=== PATIENT | female | born 1970 | race Caucasian/White ===

== ENCOUNTER 2016-09-01 08:45 | Day surgery (SDC) | payer BC ==
[~2016-09-01] VITALS: Ht 162.6 cm; Wt 67.0 kg
[2016-09-01] VITALS (11 sets, daily range): BP systolic 108–128; BP diastolic 65–76; PULSE 66–79; RESP 14–22; Ht 162.6 cm; Wt 67.0 kg
[~2016-09-01 08:45] MED LIST: IBUP-1542 PO; LACTATED RINGER'S 1,000 ML IV SCH; LORA-441 PO; P EP PO; [UNRECOGNIZED DRUG - CODE] PO
[2016-09-01] MEDS ORDERED: LEVO75TA65 PO (09:15)
[2016-09-01 09:47] LABS: ADD SCAN DIFF NO
[2016-09-01 09:57] LABS: BASOPHIL # 0.1 10^3/ul (0.0-0.1); BASOPHILS % 1.5 % (0.0-2.0); EOSINOPHILS # 0.3 10^3/ul (0.0-0.5); EOSINOPHILS % 5.1 % (0.0-7.0); HEMATOCRIT 39.9 % (37.0-47.0); HEMOGLOBIN 13.7 g/dl (12.0-16.0); LYMPHOCYTES # 2.1 10^3/ul (0.8-2.9); LYMPHOCYTES % 38.2 % (15.0-51.0); MEAN CORPUSCULAR HEMOGLOBIN 31.6 pg (29.0-33.0); MEAN CORPUSCULAR HGB CONC 34.3 g/dl (32.0-37.0); MEAN CORPUSCULAR VOLUME 91.9 fl (82.0-101.0); MEAN PLATELET VOLUME 10.2 fl (7.4-10.4); MONOCYTE # 0.5 10^3/ul (0.3-0.9); NEUTROPHIL # 2.5 10^3/ul (1.6-7.5); PLATELET COUNT 324 10^3/UL (140-415); RED BLOOD COUNT 4.34 10^6/ul (4.20-5.40); RED CELL DISTRIBUTION WIDTH 13.1 % (11.5-14.5); WHITE BLOOD COUNT 5.5 10^3/ul (4.8-10.8)
[2016-09-01] MEDS ORDERED: PROPOFOL 20 ML ONE (11:01)
[2016-09-01] MEDS ORDERED: MIDAZOLAM 1 MG/ML 2 ML INJ ONE (11:01)
[2016-09-01] MEDS ORDERED: LIDOCAINE 2% (SDV) 5 ML INJ ONE (11:01)
[2016-09-01] MEDS ORDERED: DEXAMETHASONE 4 MG/ML 1 ML INJ ONE (11:13)
[2016-09-01] MEDS ORDERED: ONDANSETRON 4 MG INJ ONE (11:13)
[2016-09-01] MEDS ORDERED: METOCLOPRAMIDE 10 MG INJ ONE (11:13)
[2016-09-01] MEDS ORDERED: EPHEDrine SULFATE 50 MG/5 ML SYG ONE (11:18)
[2016-09-01] MEDS ORDERED: KETOROLAC 30 MG INJ ONE (11:37)
[2016-09-01] MEDS ORDERED: DIPHENHYDRAMINE 50 MG INJ IV PRN (12:00)
[2016-09-01] MEDS ORDERED: FENTAnyl 50 MCG/ML VIAL IV PRN (12:00)
[2016-09-01] MEDS ORDERED: OXYCODONE/ACETAMINOPHEN (5/325) TAB PO PRN (12:00)
[2016-09-01] MEDS ORDERED: ONDANSETRON 4 MG INJ IV PRN (12:00)
[2016-09-01] MEDS ORDERED: PROCHLORPERAZINE 10 MG INJ IV PRN (12:00)
[2016-09-01] MEDS ORDERED: HYDROmorphONE (0.2 MG/ML) 10ML SYG IV PRN (12:00)
[2016-09-01] MEDS ORDERED: MEPERIDINE 25 MG INJ IV PRN (12:00)
--- NOTE | 2016-09-01 12:30 | HP ---
Date/Time of Note Date/Time of Note DATE: 09/01/16 TIME: 12:27 Assessment/Plan VTE Prophylaxis VTE Prophylaxis Intervention: ambulation Lines/Catheters IV Catheter Type (from Nrs): Peripheral IV Assessment/Plan Chief Complaint/Hosp Course abnormal uterine bleeding Problems: Assessment/Plan Dilation and Curettage HPI/ROS Admit Date/Time Admit Date/Time Hx of Present Illness abnormal uterine bleeding ROS Constitutional: improved, no complaints Eyes: no complaints ENT: no complaints Respiratory: no complaints Cardiovascular: no complaints Gastrointestinal: no complaints Genitourinary: no complaints Musculoskeletal: no complaints Skin: no complaints Neurologic: no complaints Endocrine: no complaints Lymphatic: no complaints Psychological: nl mood/affect, no complaints Immunologic: no complaints PMH/Family/Social Past Medical History Medical History: hypothyroid Past Surgical History Past Surgical Hx: other (c/s) Family History Significant Family History: diabetes, hypertension Social History Smoking Status: Never smoker Exam/Review of Systems Vital Signs Vitals Vital Signs Date Time Temp Pulse Resp B/P Pulse Ox O2 Delivery O2 Flow Rate FiO2 09/01/16 12:05 68 14 119/73 99 Room Air 09/01/16 11:51 98.4 Exam Constitutional: alert, oriented, well developed Psych: nl mood/affect, no complaints Head: atraumatic, normocephalic Eyes: EOMI, PERRL, nl conjunctiva, nl lids, nl sclera ENMT: nl external ears & nose, nl lips & teeth, nl nasal mucosa & septum Neck: non-tender, supple Respiratory: clear to auscultation, normal air movement Cardiovascular: nl pulses, regular rate and rhythm Gastrointestinal: nl liver, spleen, non-tender, soft Musculoskeletal: nl extremities to inspection Extremities: normal pulses Neurological: COMPUTER HARDWARE DESIGNER II-XII intact, nl mental status, nl speech, nl strength Skin: nl turgor, No rash or lesions Lymph: nl lymph nodes Labs Result Diagram: 09/01/16 0938 Medications Medications Current Medications Lactated Ringer's (Lr) 1,000 ml @ 125 mls/hr Q8H IV ; Start 09/01/16 at 08:00 MAMIE SANDERS MD Sep 01, 2016 12:30
--- NOTE | 2016-09-01 14:05 | OPR ---
Date/Time of Note Date/Time of Note DATE: 09/01/16 TIME: 13:45 Operative Report Procedure Date: Sep 01, 2016 Preoperative Diagnosis abnormal uterine bleeding Postoperative Diagnosis same Operation Performed Endocervical curettage, Dilation and endometrial curettage Surgeon: MAMIE SANDERS MD Anesthesia: general Anesthesiologist: ARIADNE FULTON MD Estimated Blood Loss: minimal Specimens Endocervical curetting and endometrial curetting Complications: None Pt Condition Post Procedure: stable Disposition: PACU Procedure Description Patient was taken to OR and placed on the operating table in supine position. After adequate general anesthesia was given patient was placedin dorsal lithotomy position. The area was prepped and draped . Speculum was placed inside vagina. Using tenaculum anterior lip of cervix was grasped. Using Kevorkian curette endocervical curettage was performed. Using cervical dilators , cervical os was dilated. Using sharp curette, sharp curettage was performed. All the instruments were removed. Patient tolerated the procedure well and transferred to PACU in stable condition. MAMIE SANDERS MD Sep 01, 2016 14:04
--- NOTE | 2016-09-02 10:31 | RADRPT ---
Vent Rate: 63 bpm RR Interval: 0 msec [place] Interval: 172 msec QRS Duration: 84 msec QT Interval: 422 msec QTC Interval: 431 msec P-R-T [place]: 51 - 76 - 63 degrees Normal sinus rhythm Normal ECG Electronically Signed By: Lai Eastman [id number]
== END 2016-09-01 13:50 | disposition home or self-care (01) ==
LOC: SDS 08:45
PROVIDERS: ATTEND Obstetrics & Gynecology
DX: N85.01 Benign endometrial hyperplasia (principal); D25.9 Leiomyoma of uterus, unspecified; E03.9 Hypothyroidism, unspecified
CPT/HCPCS: 58120; 85025; 86850; 86900; 86901; 88305; 93005; J1100; J1885; J2250; J2405; J2765; Z7512; Z7610

== ENCOUNTER 2016-11-13 08:24 | Inpatient (IN) | payer BC ==
[2016-11-13] VITALS (25 sets, daily range): BP systolic 90–120; BP diastolic 50–71; PULSE 56–92; RESP 10–30; Ht 162.6 cm; Wt 64.9 kg
[~2016-11-13] VITALS: Ht 162.6 cm; Wt 64.9 kg
[~2016-11-13 08:24] MED LIST changes: +D5-NS + KCL 20 MEQ 1,000 ML IV SCH; -IBUP-1542 PO; -LACTATED RINGER'S 1,000 ML IV SCH; +LEVO75TA65 PO; -LORA-441 PO; +Metronidazole 500 MG in NS 100 ML IVPB SCH; -P EP PO; -[UNRECOGNIZED DRUG - CODE] PO; +[UNRECOGNIZED DRUG - REMARK] XX SCH
[2016-11-13] MEDS ORDERED: METR500T PO (09:13)
--- NOTE | 2016-11-13 10:02 | HPN ---
Date/Time of Note Date/Time of Note DATE: 11/13/16 TIME: 10:02 Interval H&P Admission Note Pt. seen H&P reviewed: No system changes DEEPIKA CHILDS MD Nov 13, 2016 10:02
--- NOTE | 2016-11-13 10:23 | HP ---
Date/Time of Note Date/Time of Note DATE: 11/13/16 TIME: 10:21 Assessment/Plan VTE Prophylaxis VTE Prophylaxis Intervention: SCD's Lines/Catheters IV [facility]ter [facility] (from [facility]): Saline Lock HPI/ROS Admit Date/Time Admit Date/Time Nov 13, 2016 at 08:24 Hx of Present Illness Alf Childs M.D. [facility] History and Physical Examination Miroslava Hurtado Nov 01, 2016 Age: 46 : 1970 Physicians: Medical Planner: Consumer Safety Inspector: Oncologist: Other: History of the Present Illness: This is a 46- year old with complex endometrial hyperplasia with a bit a atypia. Past Medical History: Surgical: CS x 1 Medical: None Medications: Flu yes, 2016, Pneumococcal no, declined Colonoscopy: never Allergies: 02/11/15 Cipro 02/11/15 Penicillins Family History: Noncontributory Social History: Noncontributory Review of Systems: Negative except for above noted Physical Examination Vitals (10/12/2016): Weight 148, Height 63, BP 120/80, BMI 26.2. General: Alert. HEENT: Pupils are equal, round, reactive to light and accommodation. Neck: Supple with no masses of lymphadenopathy. Breast: Deferred due to recent examination and responsibility of primary care physician. Chest: Clear to auscultation and percussion with no rales, ronchi, or wheeze. Heart: Normal rhythm with no murmur. Abdomen: Non tender. No masses, ascites, or organomegaly. Pelvis: Uterus enlarged and irregular Rectal: Confirmatory with pelvic exam. Neurological: Grossly intact Assessment: Probably symptomatic fibroids and hyperplasia; r/o endometrial cancer. Plan: TLH with sentinel LND, possible USO or BSO. All risks and benefits of this procedure have been discussed in detail with the patient, as well as alternative treatment strategies and their implications. The patient is aware that there is some possibility of a blood transfusion and its associated risks and benefits. She wishes to proceed and gives her informed consent. Alf Childs M.D. PMH/Family/Social Past Surgical History Past Surgical Hx: other Social History Smoking Status: Never smoker Exam/Review of Systems Vital Signs Vitals Vital Signs Date Time Temp Pulse Resp B/P Pulse Ox O2 Delivery O2 Flow Rate FiO2 11/13/16 09:15 98.6 60 16 113/71 99 Room Air Medications Medications Current Medications Potassium Chloride/Dextrose/ Sod Cl 1,000 ml @ 100 mls/hr Q10H IV ; Start at 06:00; Stop 11/13/16 at 23:00 Metronidazole (Flagyl 500 Mg (Pmx)) 100 ml @ 100 mls/hr OC IVPB ; Start at 06:00; Stop 11/13/16 at 20:00 Miscellaneous Information (*Order Clarification Bulletin) MEDICATION REQUIRES CLARIFICATION: Q8H XX ; Start 11/13/16 at 06:00; Stop 11/13/16 at 16:00 ALF CHILDS MD Nov 13, 2016 10:23
[2016-11-13] MEDS ORDERED: morphine SULFATE/PF (10 MG/10 ML) INJ ONE (10:37)
[2016-11-13] MEDS ORDERED: PHENYLephrine (100 MCG/ML) 5ML SYG ONE (10:56)
[2016-11-13] MEDS ORDERED: ROCURONIUM 50 MG INJ ONE (11:19)
[2016-11-13] MEDS ORDERED: PROPOFOL 20 ML ONE (11:19)
[2016-11-13] MEDS ORDERED: CLINDAMYCIN 900 MG/D5W (PMX) 50 ML IVPB ONE (11:19)
[2016-11-13] MEDS ORDERED: metroNIDAZOLE 500 MG/NS (PMX) 100 ML IVPB ONE (11:19)
[2016-11-13] MEDS ORDERED: SUCCINYLCHOLINE CHLORIDE 100 MG/5 ML SYG IV ONE (11:19)
[2016-11-13] MEDS ORDERED: LIDOCAINE 1% (MDV) 20 ML INJ ONE (11:20)
[2016-11-13] MEDS ORDERED: HYDROmorphONE (0.2 MG/ML) 10ML SYG IV PRN ×2 (11:30)
[2016-11-13] MEDS ORDERED: FENTAnyl 50 MCG/ML VIAL IV PRN ×2 (11:30)
[2016-11-13] MEDS ORDERED: ONDANSETRON 4 MG INJ IV PRN ×2 (11:30→14:30)
[2016-11-13] MEDS ORDERED: METOCLOPRAMIDE 10 MG INJ IV PRN (11:30)
[2016-11-13] MEDS ORDERED: MEPERIDINE 25 MG INJ IV PRN (11:30)
[2016-11-13] MEDS ORDERED: DIPHENHYDRAMINE 50 MG INJ IV PRN (11:30)
[2016-11-13] MEDS ORDERED: THROMBIN 5000 UNIT VIAL ONE (11:54)
[2016-11-13] MEDS ORDERED: VASOPRESSIN 20 UNITS INJ ONE (11:54)
[2016-11-13] MEDS ORDERED: METHYLENE BLUE 1% 10 ML INJ ONE (11:55)
[2016-11-13] MEDS ORDERED: SUGAMMADEX SODIUM 200 MG/2 ML VIAL IV ONE (13:58)
[2016-11-13] MEDS ORDERED: HEMOSTATIC MATRIX SYG ZFS ONE (14:00)
[2016-11-13] MEDS ORDERED: metroNIDAZOLE 500 MG/NS (PMX) 100 ML IVPB SCH (14:30)
[2016-11-13] MEDS ORDERED: morphine 10 MG INJ IM PRN (14:30)
[2016-11-13] MEDS ORDERED: CEFAZOLIN 1 GM in SOD CHLORIDE 0.9% 100 ML IVPB SCH (14:30)
--- NOTE | 2016-11-13 14:32 | OPPN ---
Date/Time of Note Date/Time of Note DATE: 11/13/16 TIME: 14:29 Operative Report Preoperative Diagnosis Endometrial hyperplasia with atypia Postoperative Diagnosis same with fibroids and ureteral stricture and path pending Operation/Procedure Performed TLH/BSO,[place] P/A LND, UD Anesthesia Type: other Estimated blood loss: 50 - 100 ml's Transfusion Required: no Specimens multiple Grafts/Implants: none Complications: no DEEPIKA CHILDS MD Nov 13, 2016 14:32
[2016-11-13 14:56] LABS: BASOPHIL # 0.1 10^3/ul (0.0-0.1); BASOPHILS % 0.7 % (0.0-2.0); EOSINOPHILS # 0.1 10^3/ul (0.0-0.5); EOSINOPHILS % 0.7 % (0.0-7.0); HEMATOCRIT 40.2 % (37.0-47.0); HEMOGLOBIN 13.5 g/dl (12.0-16.0); LYMPHOCYTES % 28.8 % (15.0-51.0); MEAN CORPUSCULAR HEMOGLOBIN 31.2 pg (29.0-33.0); MEAN CORPUSCULAR HGB CONC 33.6 g/dl (32.0-37.0); MEAN CORPUSCULAR VOLUME 92.8 fl (82.0-101.0); MEAN PLATELET VOLUME 9.3 fl (7.4-10.4); MONOCYTE # 0.6 10^3/ul (0.3-0.9); MONOCYTES % 5.9 % (0.0-11.0); NEUTROPHILS % 63.6 % (39.0-77.0); PLATELET COUNT 297 10^3/UL (140-415); RED BLOOD COUNT 4.33 10^6/ul (4.20-5.40); RED CELL DISTRIBUTION WIDTH 12.2 % (11.5-14.5); WHITE BLOOD COUNT 10.6 10^3/ul (4.8-10.8)
[2016-11-13] MEDS ORDERED: CLINDAMYCIN 900 MG/D5W (PMX) 50 ML IVPB SCH (15:00)
[2016-11-13 15:26] LABS: CREATININE 0.53 mg/dl (0.44-1.00); POTASSIUM 3.5 mmol/L (3.5-5.1)
[2016-11-13] MEDS: CLINDAMYCIN 900 MG/D5W (PMX) 50 ML IVPB SCH (22:24)
[2016-11-13] MEDS: metroNIDAZOLE 500 MG/NS (PMX) 100 ML IVPB SCH (22:25)
[2016-11-13] MEDS: POTASSIUM CHLORIDE 20 MEQ in LACTATED RINGER'S 1,000 ML IV SCH (22:25)
--- NOTE | 2016-11-13 23:59 | HP ---
DATE OF ADMISSION: 11/13/2016 CHIEF COMPLAINT AND HISTORY OF PRESENT ILLNESS: The patient is a 46-year-old female with a history of abnormal uterine bleed and was seen by Dr. Fuentes as an outpatient. The patient underwent dilation and curettage on 09/01/2016. The patient's endometrial biopsy came back positive for proliferative endometrium with focal area of complex hyperplasia without atypia. It was negative for malignancy. Endocervical curettage curettings were also negative for dysplasia or malignancy. Patient was seen by Dr. Duran as an outpatient and was brought into the hospital today and was also noted to have uterine fibroid and uterine stricture. The patient underwent total laparoscopic hysterectomy, bilateral salpingo-oophorectomy lymph node dissection and ureter dissection. The patient is being admitted for further evaluation and management. The patient denies any chest pain, no shortness of breath. No reported recent fever or chills. No reported headache, dizziness or syncope. No history of diabetes, hypertension or any cardiac disease. Other than postoperative pain, the rest of the review of systems are unremarkable. PAST SURGICAL HISTORY: Patient is status post . FAMILY HISTORY: Father had diabetes. Mother with hypertension. ALLERGIES: CIPRO. PENICILLIN. SOCIAL HISTORY: No smoking. No alcohol. PHYSICAL EXAMINATION: GENERAL: Patient conscious, awake, alert. VITAL SIGNS: Temperature 97.7, pulse 66, respirations 16, blood pressure 109/59, O2 sat 97 on room air. HEENT: Conjunctivae and lids are normal. Oropharynx clear. NECK: Supple. No thyromegaly. CHEST: Clear to auscultation. CVS: S1, S2 normal. No murmur, gallop, or rub. ABDOMEN: The patient is status post surgery as above. EXTREMITIES: No leg edema. NEURO: Patient is awake, alert, with no gross focal deficit. IMPRESSION: Endometrial hyperplasia, status post laparoscopic total hysterectomy and bilateral salpingo-oophorectomy, lymph node dissection and ureteral dissection. PLAN: Patient admitted on medical floor. Patient will be started on clear liquid diet. Patient will be given IV fluids. Patient will be given clindamycin and Flagyl due to penicillin allergy. The patient will be also started on Percocet and IV morphine for pain control and IV Zofran for nausea and vomiting. Patient will have SCDs for DVT prophylaxis. We will continue to follow her from medical standpoint. Labs done this morning revealed WBC 10.6, hemoglobin 13.5, platelet 297. BMP was unremarkable. Dictated By: Que Sweeney MD /shiloh/praveena /Document#: [id number]
[2016-11-14] MEDS ORDERED: DIPHENHYDRAMINE 50 MG INJ IV PRN
[2016-11-14] MEDS: POTASSIUM CHLORIDE 20 MEQ in LACTATED RINGER'S 1,000 ML IV SCH ×2 (00:25→13:41)
[2016-11-14 02:46] VITALS: BP 101/64; RESP 18
[2016-11-14] MEDS: CLINDAMYCIN 900 MG/D5W (PMX) 50 ML IVPB SCH ×2 (03:47→13:41)
[2016-11-14] MEDS: metroNIDAZOLE 500 MG/NS (PMX) 100 ML IVPB SCH ×3 (03:47→20:52)
[2016-11-14 06:47] LABS: INR 1.07; PROTIME 13.9 Sec (12.2-14.2); PT RATIO 1.1
[2016-11-14 07:00] LABS: ALBUMIN 2.7 g/dl (3.3-4.9); ALBUMIN/GLOBULIN RATIO 1.17; BILIRUBIN,INDIRECT 0.7 mg/dl (0-1.1); BILIRUBIN,TOTAL 0.7 mg/dl (0.2-1.3); CALCIUM 7.8 mg/dl (8.4-10.2); CREATININE 0.55 mg/dl (0.44-1.00); POTASSIUM 3.8 mmol/L (3.5-5.1)
[2016-11-14 07:31] VITALS: BP 89/52; RESP 18
[2016-11-14] MEDS: HYDROCODONE/APAP (5/325) TAB PO PRN ×2 (12:53→18:53)
--- NOTE | 2016-11-14 16:48 | PN ---
Date/Time of Note Date/Time of Note DATE: 11/14/16 TIME: 16:46 Assessment/Plan VTE Prophylaxis VTE Prophylaxis Intervention: SCD's Lines/Catheters IV Catheter Type (from Nrs): Peripheral IV Urinary Cath still in place: Yes Reason Cath still needed: urinary retention Assessment/Plan Chief Complaint/Hosp Course endometrial hyprplasia Problems: Assessment/Plan A- doing well\ P- mobilize and probably d/c a.m. Subjective 24 Hr Interval Summary Free Text/Dictation + flatus but not OOB. Exam/Review of Systems Vital Signs Vitals Vital Signs Date Time Temp Pulse Resp B/P Pulse Ox O2 Delivery O2 Flow Rate FiO2 11/14/16 07:31 98.6 74 18 89/52 96 11/13/16 17:50 Room Air Intake and Output 11/13/16 11/13/16 11/14/16 14:59 22:59 06:59 Intake Total 1200 ml 120 ml 1520 ml Output Total 380 ml 600 ml 1050 ml Balance 820 ml -480 ml 470 ml Exam Resp- clear CVS- NSR Abd- NT with clean wound, Ext - NT' no edema Results Result Diagram: 11/13/16 1442 11/14/16 0529 Results 24 hrs Laboratory Tests Test 11/14/16 05:29 11/14/16 05:58 Sodium Level 135 Potassium Level 3.8 Chloride Level 104 Carbon Dioxide Level 27 Anion Gap 8 Blood Urea Nitrogen 9 Creatinine 0.55 Glucose Level 74 Calcium Level 7.8 L Total Bilirubin 0.7 Direct Bilirubin 0.00 Indirect Bilirubin 0.7 Aspartate Amino Transf (AST/SGOT) 22 Alanine Aminotransferase (ALT/SGPT) 30 Alkaline Phosphatase 39 L Total Protein 5.0 L Albumin 2.7 L Globulin 2.30 Albumin/Globulin Ratio 1.17 Prothrombin Time 13.9 Prothrombin Time Ratio 1.1 INR International Normalized Ratio 1.07 Medications Medications Current Medications Potassium Chloride/Lactated Ringer's (KCl/Lr) 1,010 ml @ 60 mls/hr [id number] IV Last administered on 11/14/16t 13:41; Admin Dose 100 MLS/HR; Start 11/13/16 at 14: 19 Ondansetron HCl (Zofran Inj) 4 mg Q6H PRN IV NAUSEA AND/OR VOMITING; Start 11/13 at 14:30 Acetaminophen/ Hydrocodone Bitart ([place] (5/325)) 1 tab Q6H PRN PO pain Last administered on 11/14/16 12:53; Admin Dose 1 TAB; Start 11/13/16 at 14:30 Morphine Sulfate 2 mg 2 mg Q4H PRN IM pain; Start 11/13/16 at 14:30 Metronidazole (Flagyl 500 Mg (Pmx)) 100 ml @ 100 mls/hr Q8H IVPB Last administered on 11/14/16 12:47; Admin Dose 100 MLS/HR; Start 11/13/16 at 20:00 Diphenhydramine HCl (Benadryl) 25 mg Q6H PRN IV itching Last administered on 23:43; Admin Dose 25 MG; Start 11/14/16 at 00:00 DEEPIKA CHILDS MD Nov 14, 2016 16:48
--- NOTE | 2016-11-14 18:20 | PN ---
Date/Time of Note Date/Time of Note DATE: 11/14/16 TIME: 18:15 Assessment/Plan VTE Prophylaxis VTE Prophylaxis Intervention: SCD's Lines/Catheters IV Catheter Type (from Nrs): Peripheral IV Urinary Cath still in place: Yes Assessment/Plan Assessment/Plan - Endometrial hyperplasia - status post laparoscopic total hysterectomy and bilateral salpingo- oophorectomy, lymph node dissection and ureteral dissection. - per surgery - diet per surgery - IV fluids., clindamycin and Flagyl due to penicillin allergy. - Percocet and IV morphine for pain control and IV Zofran for nausea and vomiting. - SCDs for DVT prophylaxis. Andrés Sweeney Subjective 24 Hr Interval Summary Constitutional: requiring IVF Gastrointestinal: other (surgical Abdomen), pain Musculoskeletal: no complaints Skin: other (abdominal - DDI) Exam/Review of Systems Vital Signs Vitals Vital Signs Date Time Temp Pulse Resp B/P Pulse Ox O2 Delivery O2 Flow Rate FiO2 11/14/16 07:31 98.6 74 18 89/52 96 11/13/16 17:50 Room Air Intake and Output 11/13/16 11/13/16 11/14/16 15:00 23:00 07:00 Intake Total 1200 ml 170 ml 1470 ml Output Total 380 ml 600 ml 1050 ml Balance 820 ml -430 ml 420 ml Exam Respiratory: diminished breath sounds Cardiovascular: nl pulses, regular rate and rhythm Gastrointestinal: non-tender, soft Musculoskeletal: nl extremities to inspection Extremities: normal pulses Neurological: other Results Result Diagram: 11/13/16 1442 11/14/16 0529 Results 24 hrs Laboratory Tests Test 11/14/16 05:29 11/14/16 05:58 Sodium Level 135 Potassium Level 3.8 Chloride Level 104 Carbon Dioxide Level 27 Anion Gap 8 Blood Urea Nitrogen 9 Creatinine 0.55 Glucose Level 74 Calcium Level 7.8 L Total Bilirubin 0.7 Direct Bilirubin 0.00 Indirect Bilirubin 0.7 Aspartate Amino Transf (AST/SGOT) 22 Alanine Aminotransferase (ALT/SGPT) 30 Alkaline Phosphatase 39 L Total Protein 5.0 L Albumin 2.7 L Globulin 2.30 Albumin/Globulin Ratio 1.17 Prothrombin Time 13.9 Prothrombin Time Ratio 1.1 INR International Normalized Ratio 1.07 Medications Medications Current Medications Potassium Chloride/Lactated Ringer's (KCl/Lr) 1,010 ml @ 60 mls/hr [id number] IV Last administered on 11/14/16 13:41; Admin Dose 100 MLS/HR; Start 11/13/16 at 14: 19 Ondansetron HCl (Zofran Inj) 4 mg Q6H PRN IV NAUSEA AND/OR VOMITING; Start 11/13 at 14:30 Acetaminophen/ Hydrocodone Bitart ([place] (5/325)) 1 tab Q6H PRN PO pain Last administered on 11/14/16 12:53; Admin Dose 1 TAB; Start 11/13/16 at 14:30 Morphine Sulfate 2 mg 2 mg Q4H PRN IM pain; Start 11/13/16 at 14:30 Metronidazole (Flagyl 500 Mg (Pmx)) 100 ml @ 100 mls/hr Q8H IVPB Last administered on 11/14/16 12:47; Admin Dose 100 MLS/HR; Start 11/13/16 at 20:00 Diphenhydramine HCl (Benadryl) 25 mg Q6H PRN IV itching Last administered on 23:43; Admin Dose 25 MG; Start 11/14/16 at 00:00 YUDITH WHATLEY Nov 14, 2016 18:20
--- NOTE | 2016-11-14 19:01 | OPR ---
Date/Time of Note Date/Time of Note DATE: 11/14/16 TIME: 19:01 Operative Report Free Text/Dictation OPERATIVE REPORT [facility] Name: Miroslava Hurtado Medical Date: 11/13/16 Preoperative Diagnosis: Endometrial severe hyperplasia with atypia Postoperative Diagnosis: Endometrial cancer with final pathology pending Procedures: 1- Total laparoscopic hysterectomy with left salpingoophorectomy/right salpingectomy 2- Bilateral ureteral dissection with repositioning 3- Laparoscopic sentinal pelvic and aortic lymph node dissection Surgeon: Dr. Duran Material Yard Clerk: Dr. Roberta Sprague Anaesthesia: General with regional Indications for Procedure: This 46- year old patient had endometrial hyperplasia , complex with atypia preoperatively and after discussions of options with risks and benefits it was determined that a laparoscopic hysterectomy with unilateral salpingoophorectomy and sentinel pelvic/aortic lymph node dissection would be completed for the purposes of treatment and possibly planning additional adjuvant therapy if needed. The sentinel pelvic and LND was performed in lieu of the frozen section not being more that 80% reliable in determining presence of cancer; therefore selective staging is performed to determine postoperative management and avoid re-operation unless there is a significant contraindication. Intraoperative Findings and Summary of Procedure: After placing the Trocars and exploration we noted a lightly enlarged uterus with significant adhesions of the adnexia to the sidewalls The TLH/LSO/LS was then Name: Miroslava Hurtado Medical performed without incident but required a ureteral dissection due to anatomic issues of the adnexia adherent to the sidewalls and a right broad ligament myoma , after which the laparoscopic sentinel LND was performed with a finding of grossly negative nodes pathology pending. Findings and Procedure: After being prepped and draped in the usual manner an EEA sizer and balloon was placed against the cervix. A 5-millimeter trocar was then placed cephlad to the umbilicus without incident. Subsequently, we insufflated and placed two 5- millimeter trocars laterally and a 12 millimeter trocar suprapubically, as well as an additional 5-mm trocar further cephlad to the umbilicus. At this time multiple pelvic adhesions were lysed with sharp dissection and the Omni if not adjacent to serosa. Subsequently we explored and noted a moderately irregularly enlarged uterus due to fibroids with adnexia adherent to the sidewalls due to apparent inflammation and old scar tissue with a cystic lesion on the left. Initially the right round ligament was cauterized and transected with the Thunderbeat and the retroperitoneal space further opened parallel to the IP ligament and laterally with the same devise. The right ureter was identified and due to the aforementioned distortion from adherent adnexia was dissected laterally with the Omni and the endo-dissector throughout the length of the ureter and lateralized. After lateralizing the ureter the uterine artery was identified and clipped lateral to the ureter. Hence, a space was developed the broad ligament and the right triple-pedicle was cauterized and transected with a Thunderbeat after which the fallopian tube was removed by desiccation and cutting of the fallopian tube mesentery with a Thunderbeat and the uterus was retracted medially and the bladder flap was partly developed with the Thunderbeat and the Omni. We then used a ratcheted endo-grasper placed through the 12-mm suprapubic trocar to manipulate the uterus and with the EEA sizer the uterus was retracted and left round ligament was cauterized and transected with the Thunderbeat and the retroperitoneal space further opened parallel to the IP ligament an Name: Miroslava Hurtado [facility] laterally with the same devise. The left ureter was identified and due to the aforementioned distortion was dissected laterally with the Omni and the endo- dissector as done contralaterally. After lateralizing the ureter the uterine artery was identified and clipped lateral to the ureter. Subsequently, a space was developed in the broad ligament and the left IP ligament was cauterized and transected with a Thunderbeat after which the uterus was retracted medially, allowing development or the bladder flap uneventfully with the Omni and blunt dissection. Subsequently, the right uterine artery was transected with a Thunderbeat perpendicular to the distal lower uterine segment and the Cardinal ligament and utero-sacral ligament were both transected with a Thunderbeat parallel to the lower uterine segment and cervix. An identical series of steps were taken on the left side. The anterior and posterior colpotomies were accomplished with a Thunderbeat anteriorly and posteriorly, and continued around the sides with the Omni and Thunderbeat as the specimen was removed through the vagina uneventfully. The vagina was closed with interrupted 0- vicryl and continuous 2-0 v-lock suture. At this time the frozen section returned no definite endometrial cancer and the sentinel pelvic and aortic LND were completed after confirming hemostasis. Initially a fan retractor was used for exposure and secured to the Andi arm and all appropriate node tissue adjacent to the right pelvic vessels were removed with sharp and blunt dissection, using the Gyrus bipolar cutting forceps or Gyrus bipolar Omni for hemostasis and lymphostasis. The snehal tissue was grasped and subsequently placed under tractions with the Omni and the Gyrus bipolar cutting forceps then being used for the hemostasis and lymphostasis in the process of removal and included hypogastric and obturator nodes with the obturator nerve visualized. The dissection was continued to include any snehal tissue adjacent to the common iliac vessels. The fan retractors were adjusted in that a suprapubically placed fan retracted the broad ligament and ureter with ileum while the right lateral trocar was used for a fan to retract the cecum and ascending colon allowing snehal tissue adjacent to the vena cava, as well as aorto-caval nodes to be removed using identical technique. Assistant Vice President vessels were addressed with the Gyrus bipolar cutting forceps or Gyrus bipolar Omni. At this time we placed the fan Name: [facility] retractors for contralateral exposure. Subsequently, node tissue adjacent to the left pelvic vessels were removed with sharp and blunt dissection, the Gyrus bipolar cutting forceps or Gyrus bipolar Omni for hemostasis and lymphostasis, with a technique identical to the right side with equivalent extent of completion. The dissection was continued to include snehal tissue adjacent to the common iliac vessels. Subsequently, the fan retractors were adjusted and snehal tissue adjacent to the aorta were dissected using similar technique. After irrigating and assuring hemostasis the 12 millimeter trocar was removed and the fascia was closed with 0-vicryl using an endo-close devise. The gas was removed and the skin of all sites then closed with subcuticular 5-0 Monocryl suture. The EBL was 100cc and the patient tolerated the procedure well and left the OR in good condition. Deepika Duran M.D. Anesthesia Type: other Estimated Blood Loss: 50 - 100 ml's Transfusion Required: no Complications: no DEEPIKA DURAN MD Nov 14, 2016 19:01
[2016-11-14 20:06] VITALS: BP 131/72; RESP 18
[2016-11-15] MEDS: POTASSIUM CHLORIDE 20 MEQ in LACTATED RINGER'S 1,000 ML IV SCH ×2 (00:33→05:52)
[2016-11-15] MEDS: HYDROCODONE/APAP (5/325) TAB PO PRN ×4 (01:08→17:44)
[2016-11-15 02:06] VITALS: BP 112/67; RESP 18
[2016-11-15] MEDS: metroNIDAZOLE 500 MG/NS (PMX) 100 ML IVPB SCH ×2 (03:25→12:51)
[2016-11-15 05:54] LABS: BASOPHIL # 0.1 10^3/ul (0.0-0.1); BASOPHILS % 0.9 % (0.0-2.0); EOSINOPHILS # 0.1 10^3/ul (0.0-0.5); EOSINOPHILS % 1.7 % (0.0-7.0); HEMATOCRIT 35.4 % (37.0-47.0); LYMPHOCYTES # 1.5 10^3/ul (0.8-2.9); LYMPHOCYTES % 25.9 % (15.0-51.0); MEAN CORPUSCULAR HEMOGLOBIN 31.1 pg (29.0-33.0); MEAN CORPUSCULAR HGB CONC 33.9 g/dl (32.0-37.0); MEAN CORPUSCULAR VOLUME 91.7 fl (82.0-101.0); MEAN PLATELET VOLUME 9.6 fl (7.4-10.4); MONOCYTE # 0.4 10^3/ul (0.3-0.9); MONOCYTES % 7.5 % (0.0-11.0); NEUTROPHILS % 63.7 % (39.0-77.0); PLATELET COUNT 274 10^3/UL (140-415); RED BLOOD COUNT 3.86 10^6/ul (4.20-5.40); RED CELL DISTRIBUTION WIDTH 12.4 % (11.5-14.5); WHITE BLOOD COUNT 5.9 10^3/ul (4.8-10.8)
[2016-11-15 06:32] LABS: CREATININE 0.54 mg/dl (0.44-1.00); POTASSIUM 3.8 mmol/L (3.5-5.1)
[2016-11-15 07:55] VITALS: BP 126/78; RESP 18
[2016-11-15] MEDS ORDERED: LEVOTHYROXINE 75 MCG TAB PO SCH (11:30)
[2016-11-15 14:00] VITALS: BP 118/74; RESP 17
--- NOTE | 2016-11-15 17:04 | PN ---
Date/Time of Note Date/Time of Note DATE: 11/15/16 TIME: 17:02 Assessment/Plan VTE Prophylaxis VTE Prophylaxis Intervention: SCD's Lines/Catheters IV [facility] Type [facility] Peripheral IV Urinary Cath still in place: No Assessment/Plan Chief Complaint/Hosp Course endometrial hyprplasia Problems: Assessment/Plan A- doing well P- discharge Subjective 24 Hr Interval Summary Free Text/Dictation + flatus, OOB and alvaro diet Exam/Review of Systems Vital Signs Vitals Vital Signs Date Time Temp Pulse Resp B/P Pulse Ox O2 Delivery O2 Flow Rate FiO2 11/15/16 14:00 98.2 65 17 118/74 96 11/13/16 17:50 Room Air Intake and Output 11/14/16 11/14/16 11/15/16 15:00 23:00 07:00 Intake Total 660 ml 1120 ml 930 ml Output Total 1700 ml Balance 660 ml -580 ml 930 ml Exam Resp- clear CVS- NSR Abd- NT with clean wound, Ext - NT' no edema Results Result Diagram: 11/15/16 0510 11/15/16 0510 Results 24 hrs Laboratory Tests Test 11/15/16 05:10 White Blood Count 5.9 # Red Blood Count 3.86 L Hemoglobin 12.0 Hematocrit 35.4 L Mean Corpuscular Volume 91.7 Mean Corpuscular Hemoglobin 31.1 Mean Corpuscular Hemoglobin Concent 33.9 Red Cell Distribution Width 12.4 Platelet Count 274 Mean Platelet Volume 9.6 Neutrophils % 63.7 Lymphocytes % 25.9 Monocytes % 7.5 Eosinophils % 1.7 Basophils % 0.9 Nucleated Red Blood Cells % 0.0 Neutrophils # (Manual) 3.7 Lymphocytes # 1.5 Monocytes # 0.4 Eosinophils # 0.1 Basophils # 0.1 Nucleated Red Blood Cells # 0.0 Sodium Level 135 Potassium Level 3.8 Chloride Level 104 Carbon Dioxide Level 29 Anion Gap 6 L Blood Urea Nitrogen 8 Creatinine 0.54 Glucose Level 92 Calcium Level 8.0 L Medications Medications Current Medications Potassium Chloride/Lactated Ringer's (KCl/Lr) 1,010 ml @ 60 mls/hr [id number] IV Last administered on 11/15/16t 05:52; Admin Dose 60 MLS/HR; Start 11/13/16 at 14: 19 Ondansetron HCl (Zofran Inj) 4 mg Q6H PRN IV NAUSEA AND/OR VOMITING; Start 11/13 at 14:30 Acetaminophen/ Hydrocodone Bitart ([place] (5/325)) 1 tab Q6H PRN PO pain Last administered on 11/15/16 12:50; Admin Dose 1 TAB; Start 11/13/16 at 14:30 Morphine Sulfate 2 mg 2 mg Q4H PRN IM pain; Start 11/13/16 at 14:30 Metronidazole (Flagyl 500 Mg (Pmx)) 100 ml @ 100 mls/hr Q8H IVPB Last administered on 11/15/16 12:51; Admin Dose 100 MLS/HR; Start 11/13/16 at 20:00 Diphenhydramine HCl (Benadryl) 25 mg Q6H PRN IV itching Last administered on 23:43; Admin Dose 25 MG; Start 11/14/16 at 00:00 DEEPIKA CHILDS MD Nov 15, 2016 17:04
--- NOTE | 2016-11-15 17:13 | DS ---
Date/Time of Note Date/Time of Note DATE: 11/15/16 TIME: 17:13 Discharge Summary Admission/Discharge Info Admit Date/Time Nov 13, 2016 at 08:24 Discharge Date/Time Patient Condition: Stable Hx of Present Illness Alf Duran M.D. 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 Past Medical History: Surgical: CS x 1 Medical: None Medications: Flu yes, 2016, Pneumococcal no, declined Colonoscopy: never Allergies: 02/11/15 Cipro 02/11/15 Penicillins Family History: Noncontributory Social History: Noncontributory Review of Systems: Negative except for above noted Physical Examination Vitals (10/12/2016): Weight 148, Height 63, BP 120/80, BMI 26.2. General: Alert. HEENT: Pupils are equal, round, reactive to light and accommodation. Neck: Supple with no masses of lymphadenopathy. Breast: Deferred due to recent examination and responsibility of primary care physician. Chest: Clear to auscultation and percussion with no rales, ronchi, or wheeze. Heart: Normal rhythm with no murmur. Abdomen: Non tender. No masses, ascites, or organomegaly. Pelvis: Uterus enlarged and irregular Rectal: Confirmatory with pelvic exam. Neurological: Grossly intact Assessment: Probably symptomatic fibroids and hyperplasia; r/o endometrial cancer. Plan: TLH with sentinel LND, possible USO or BSO. All risks and benefits of this procedure have been discussed in detail with the patient, as well as alternative treatment strategies and their implications. The patient is aware that there is some possibility of a blood transfusion and its associated risks and benefits. She wishes to proceed and gives her informed consent. Alf Duran M.D. Hospital Course endometrial hyprplasia Home Meds Reported Medications Metronidazole* (Flagyl*) 500 Mg Tablet, 500 MG PO BID, TAB 11/13/16 Levothyroxine Sodium* (Levoxyl*) 75 Mcg Tablet, 75 MCG PO BEFORE BREAKFAST, #30 TAB 09/01/16 Primary Care Provider Zaina Woodruff Time spent on discharge: < 30 minutes Pending Labs Laboratory Tests Test 11/15/16 05:10 White Blood Count 5.910^3/ul (4.8-10.8) Red Blood Count 3.8610^6/ul (4.20-5.40) Hemoglobin 12.0g/dl (12.0-16.0) Hematocrit 35.4% (37.0-47.0) Mean Corpuscular Volume 91.7fl (82.0-101.0) Mean Corpuscular Hemoglobin 31.1pg (29.0-33.0) Mean Corpuscular Hemoglobin Concent 33.9g/dl (32.0-37.0) Red Cell Distribution Width 12.4% (11.5-14.5) Platelet Count 18155^3/UL (140-415) Mean Platelet Volume 9.6fl (7.4-10.4) Neutrophils % 63.7% (39.0-77.0) Lymphocytes % 25.9% (15.0-51.0) Monocytes % 7.5% (0.0-11.0) Eosinophils % 1.7% (0.0-7.0) Basophils % 0.9% (0.0-2.0) Nucleated Red Blood Cells % 0.0/100WBC (0.0-0.0) Neutrophils # (Manual) 3.710^3/ul (1.7-7.5) Lymphocytes # 1.510^3/ul (0.8-2.9) Monocytes # 0.410^3/ul (0.3-0.9) Eosinophils # 0.110^3/ul (0.0-0.5) Basophils # 0.110^3/ul (0.0-0.1) Nucleated Red Blood Cells # 0.010^3/ul (0.0-0.0) Sodium Level 135mmol/L (135-144) Potassium Level 3.8mmol/L (3.5-5.1) Chloride Level 104mmol/L (97-110) Carbon Dioxide Level 29mmol/L (21-31) Anion Gap 6 (8-16) Blood Urea Nitrogen 8mg/dl (7-20) Creatinine 0.54mg/dl (0.44-1.00) Glucose Level 92mg/dl (70-220) Calcium Level 8.0mg/dl (8.4-10.2) YUDITH WHATLEY Nov 15, 2016 17:13
[2016-11-15] MEDS ORDERED: PANT20TA2 PO (17:36)
[2016-11-15] MEDS ORDERED: DOCU-144 PO ×2 (17:36→17:37)
[2016-11-15] MEDS ORDERED: HYDR-3498 PO (17:36)
== END 2016-11-15 19:10 | disposition home or self-care (01) | DRG 743 ==
LOC: REC 08:24 → MS2 17:53
PROC: 0UTC7ZZ Resection of Cervix, Via Natural or Artificial Opening (ICD-10-PCS; 2016-11-13)
PROC: 0UT7FZZ Resection of Bilateral Fallopian Tubes, Via Natural or Artificial Opening With Percutaneous Endoscopic Assistance (ICD-10-PCS; 2016-11-13)
PROC: 0UT1FZZ Resection of Left Ovary, Via Natural or Artificial Opening With Percutaneous Endoscopic Assistance (ICD-10-PCS; 2016-11-13)
PROC: 07BC4ZZ Excision of Pelvis Lymphatic, Percutaneous Endoscopic Approach (ICD-10-PCS; 2016-11-13)
PROC: 0TS84ZZ Reposition Bilateral Ureters, Percutaneous Endoscopic Approach (ICD-10-PCS; 2016-11-13)
PROC: 0UT9FZZ Resection of Uterus, Via Natural or Artificial Opening With Percutaneous Endoscopic Assistance (ICD-10-PCS; principal; 2016-11-13 09:30)
DX: N85.02 Endometrial intraepithelial neoplasia [EIN] (principal); N13.5 Crossing vessel and stricture of ureter without hydronephrosis; D25.9 Leiomyoma of uterus, unspecified; N93.9 Abnormal uterine and vaginal bleeding, unspecified
CPT/HCPCS: 80048; 80053; 84703; 85025; 85610; 86850; 86900; 86901; 86920; 87086; 88104; 88305; 88307; 88331; J1200; J2175; J2274; J2370; J2405; J3010; J3480; J7120; J7999

== ENCOUNTER 2016-11-16 23:51 | Inpatient (IN) | payer BC ==
[~2016-11-16] VITALS: Ht 167.6 cm; Wt 65.0 kg
[~2016-11-16 23:51] MED LIST changes: -D5-NS + KCL 20 MEQ 1,000 ML IV SCH; +DOCU-144 PO; +HYDR-3498 PO; -Metronidazole 500 MG in NS 100 ML IVPB SCH; +PANT20TA2 PO; -[UNRECOGNIZED DRUG - REMARK] XX SCH
[2016-11-17] MEDS ORDERED: ONDANSETRON 4 MG INJ IV STA (00:14)
[2016-11-17] MEDS ORDERED: HYDROmorphONE 1 MG/ML SYG IV STA (00:14)
[2016-11-17] MEDS ORDERED: SOD CHLORIDE 0.9% 500 ML IV STA (00:14)
[2016-11-17 00:16] VITALS: Ht 167.6 cm; Wt 65.0 kg
[2016-11-17 00:34] LABS: BASOPHIL # 0.1 10^3/ul (0.0-0.1); BASOPHILS % 0.5 % (0.0-2.0); EOSINOPHILS # 0.1 10^3/ul (0.0-0.5); EOSINOPHILS % 0.8 % (0.0-7.0); HEMATOCRIT 44.2 % (37.0-47.0); HEMOGLOBIN 14.8 g/dl (12.0-16.0); LYMPHOCYTES # 1.5 10^3/ul (0.8-2.9); LYMPHOCYTES % 12.6 % (15.0-51.0); MEAN CORPUSCULAR HEMOGLOBIN 30.6 pg (29.0-33.0); MEAN CORPUSCULAR HGB CONC 33.5 g/dl (32.0-37.0); MEAN CORPUSCULAR VOLUME 91.3 fl (82.0-101.0); MEAN PLATELET VOLUME 9.3 fl (7.4-10.4); MONOCYTE # 0.6 10^3/ul (0.3-0.9); MONOCYTES % 5.3 % (0.0-11.0); NEUTROPHILS % 80.5 % (39.0-77.0); PLATELET COUNT 335 10^3/UL (140-415); RED BLOOD COUNT 4.84 10^6/ul (4.20-5.40); RED CELL DISTRIBUTION WIDTH 12.4 % (11.5-14.5); WHITE BLOOD COUNT 11.7 10^3/ul (4.8-10.8)
[2016-11-17 00:52] LABS: INR 0.94; PROTIME 12.6 Sec (12.2-14.2)
[2016-11-17 00:53] LABS: PARTIAL THROMBOPLASTIN TIME 29.2 Sec (25.0-35.0)
[2016-11-17 00:56] LABS: ALANINE AMINOTRANSFERASE 42 IU/L (13-69); ALBUMIN 4.2 g/dl (3.3-4.9); ALKALINE PHOSPHATASE 72 IU/L (42-121); ANION GAP 12 (8-16); ASPARTATE AMINO TRANSFERASE 43 IU/L (15-46); BILIRUBIN,INDIRECT 0.5 mg/dl (0-1.1); BILIRUBIN,TOTAL 0.5 mg/dl (0.2-1.3); BLOOD UREA NITROGEN 8 mg/dl (7-20); CALCIUM 9.5 mg/dl (8.4-10.2); CARBON DIOXIDE 28 mmol/L (21-31); CHLORIDE 98 mmol/L (97-110); CREATININE 0.56 mg/dl (0.44-1.00); GLUCOSE 133 mg/dl (70-220); POTASSIUM 4.1 mmol/L (3.5-5.1); SODIUM 134 mmol/L (135-144); TOTAL PROTEIN 7.7 g/dl (6.1-8.1)
--- NOTE | 2016-11-17 01:00 | RADRPT ---
PROCEDURE: XR Chest. CLINICAL INDICATION: Chest pain. TECHNIQUE: Single frontal view of the chest. COMPARISON: None. FINDINGS: The cardiomediastinal silhouette is within normal limits. The lungs are clear. No signs of pleural f luid or pneumothorax are seen. The osseous structures and soft tissues are unremarkable. IMPRESSION: No evidence for active cardiopulmonary disease. RPTAT: [facility] Physician Ashley Date Time Electronically viewed and signed by Tracy Stewart Physician on 11/17/2016 00:59 RS/
[2016-11-17 01:04] LABS: B-TYPE NATRIURETIC PEPTIDE 112 PG/ML (0-125)
[2016-11-17 01:15] LABS: TROPONIN-I < 0.012 ng/ml (0.00-0.12)
--- NOTE | 2016-11-17 02:05 | RADRPT ---
PROCEDURE: CT Abdomen and pelvis without contrast. CLINICAL INDICATION: Abdominal pain. TECHNIQUE: CT scan of the abdomen and pelvis was performed on a multi-detector high-resolution CT scanner. Contiguous axial images were obtained from the lung bases to the ischial tuberosities wit hout intravenous contrast. Coronal and sagittal reformatted images were also obtained. Images were reviewed on the PACS workstation. One or more of the following dose reduction techniques were used: - Automated exposure control. - Adjustment of the mA and/or kV according to patient size. - Use of iterative reconstruction technique. Exam CTD/vol = 10.90 mGy. Total exam DLP = 662.13 mGy-cm. COMPARISON: 10/12/2010 FINDINGS: Evaluation of the lung bases demonstrates mild bibasilar atelectasis. Abdomen: The liver is normal in size. There is no focal mass or dilatation of the biliary tree. T he gallbladder is not distended. The spleen, pancreas and bilateral adrenal glands are within lexus l limits. Bilateral kidneys are normal in size with no contour deforming mass identified. There ar e two calculi within the lower pole of the left kidney measuring 6 x 2 mm and 1 mm. There is no hyd ronephrosis or hydroureter. There is no retroperitoneal adenopathy. The abdominal aorta is of norm al caliber. There is subcutaneous stranding and air across the at the level of the umbilicus and inguinal region . There is moderate retained stool within the colon. There is no bowel obstruction. There is mild p neumoperitoneum. A normal appendix is identified. There is no diverticulosis or diverticulitis. T here is no ascites. Pelvis: The bladder demonstrates mild wall thickening and contains small amount of air. The patien t is status post hysterectomy. There is moderate pelvic stranding and mild free fluid. There is no significant pelvic adenopathy or free fluid. There is subcutaneous stranding and nodularity over jethro ateral buttocks suggestive of cosmetic injections. Evaluation of the osseous structures demonstrates no suspicious lytic or blastic lesion. IMPRESSION: Status post hysterectomy with moderate pelvic stranding and mild free fluid. No drainable fluid vinicio ection is identified. There is mild postsurgical pneumoperitoneum. Mild bladder wall thickening could suggest cystitis. Clinically correlate. Nonobstructing left renal calculi. Mild bibasilar atelectasis. A call report was made to Dr. Merchant at 02:02 a.m. .Daniel Jefferson MD, MD Date Time Electronically viewed and signed by .Daniel Jefferson MD, MD on 11/17/2016 02:05 .T/
--- NOTE | 2016-11-17 02:39 | ERA ---
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 She status post hysterectomy. No nausea no vomiting no chills. No other current complaints. ROS All systems reviewed and are negative except as per history of present illness. Medications Home Meds Active Scripts Docusate Sodium* (Colace*) 100 Mg Capsule, 100 MG PO DAILY, #20 CAP Prov:YUDITH WHATLEY 11/15/16 Pantoprazole* (Protonix*) 20 Mg Tablet.dr, 20 MG PO DAILY, #20 TAB Prov:YUDITH WHATLEY 11/15/16 Hydrocodone Bit-Acetaminophen (Hydrocodone Bit-APAP) 5-325MG Tablet, 1 TAB PO Q6H Y for pain, #10 TAB Prov:YUDITH WHATLEY 11/15/16 Reported Medications Levothyroxine Sodium* (Levoxyl*) 75 Mcg Tablet, 75 MCG PO BEFORE BREAKFAST, #30 TAB 09/01/16 Discontinued Reported Medications Metronidazole* (Flagyl*) 500 Mg Tablet, 500 MG PO BID, TAB 11/13/16 Allergies Allergies: Coded Allergies: Penicillins (Verified Allergy, Unknown, SOB, RASH, 09/01/16) ciprofloxacin (Verified Allergy, Unknown, SOB, RASH, 09/01/16) PMhx/Soc Medical and Surgical Hx: pt denies Medical Hx History of Surgery: Yes (CSECTION) Anesthesia Reaction: No Hx Neurological Disorder: No Hx Respiratory Disorders: No Hx Cardiac Disorders: No Hx Psychiatric Problems: No Hx Miscellaneous Medical Probl: No Hx Alcohol Use: Yes (SOCIALY) Hx Substance Use: No Hx Tobacco Use: No Smoking Status: Never smoker Physical Exam Vitals Vital Signs Date Time Temp Pulse Resp B/P Pulse Ox O2 Delivery O2 Flow Rate FiO2 11/17/16 00:30 Nasal Cannula 2 11/17/16 00:16 97.5 81 18 133/104 100 11/17/16 00:10 98.6 112 28 157/69 99 Physical Exam Const: [] Head: Atraumatic Eyes: Normal Conjunctiva ENT: Normal External Ears, Nose and Mouth. Neck: Full range of motion..~ No meningismus. Resp: Clear to auscultation bilaterally Cardio: Regular rate and rhythm, no murmurs Abd: Soft, non tender, non distended. Normal bowel sounds Skin: No petechiae or rashes Back: No midline or flank tenderness Ext: No cyanosis, or edema Neur: Awake and alert Psych: Normal Mood and Affect Result Diagram: 11/17/160 11/17/16 0020 Results 24 hrs Laboratory Tests Test 11/17/16 00:20 White Blood Count 11.710^3/ul Red Blood Count 4.8410^6/ul Hemoglobin 14.8g/dl Hematocrit 44.2% Mean Corpuscular Volume 91.3fl Mean Corpuscular Hemoglobin 30.6pg Mean Corpuscular Hemoglobin Concent 33.5g/dl Red Cell Distribution Width 12.4% Platelet Count 16941^3/UL Mean Platelet Volume 9.3fl Neutrophils % 80.5% Lymphocytes % 12.6% Monocytes % 5.3% Eosinophils % 0.8% Basophils % 0.5% Nucleated Red Blood Cells % 0.0/100WBC Neutrophils # (Manual) 9.410^3/ul Lymphocytes # 1.510^3/ul Monocytes # 0.610^3/ul Eosinophils # 0.110^3/ul Basophils # 0.110^3/ul Nucleated Red Blood Cells # 0.010^3/ul Prothrombin Time 12.6Sec Prothrombin Time Ratio 1.0 INR International Normalized Ratio 0.94 Activated Partial Thromboplast Time 29.2Sec Sodium Level 134mmol/L Potassium Level 4.1mmol/L Chloride Level 98mmol/L Carbon Dioxide Level 28mmol/L Anion Gap 12 Blood Urea Nitrogen 8mg/dl Creatinine 0.56mg/dl Glucose Level 133mg/dl Calcium Level 9.5mg/dl Total Bilirubin 0.5mg/dl Direct Bilirubin 0.00mg/dl Indirect Bilirubin 0.5mg/dl Aspartate Amino Transf (AST/SGOT) 43IU/L Alanine Aminotransferase (ALT/SGPT) 42IU/L Alkaline Phosphatase 72IU/L Troponin I < 0.012ng/ml B-Type Natriuretic Peptide 112PG/ML Total Protein 7.7g/dl Albumin 4.2g/dl Globulin 3.50g/dl Albumin/Globulin Ratio 1.20 Lipase 30U/L Current Medications Medications (Trade) Dose Ordered Sig/Axel Route PRN Reason Start Time Stop Time Status Last Admin Dose Admin Sodium Chloride (NS) 500 ml @ 500 mls/hr Q1H STAT IV 11/17/16 00:14 11/17/16 01:13 DC 11/17/16 00:22 Hydromorphone HCl (Dilaudid) 1 mg ONCE STAT IV 11/17/16 00:14 11/17/16 00:15 DC 11/17/16 00:21 Ondansetron HCl (Zofran Inj) 4 mg ONCE STAT IV 11/17/16 00:14 11/17/16 00:15 DC 11/17/16 00:21 Procedures/MDM Medical decision-making: Patient comes in essentially with intractable abdominal pain postoperatively. At this point she will be admitted. Patient has stabilized her pain Departure Diagnosis: Primary Impression: Abdominal pain Qualified Code: R10.9 - Abdominal pain, unspecified abdominal location Condition: Serious MARYANA LAWS Nov 17, 2016 02:39
[2016-11-17 03:15] VITALS: PULSE 62
[2016-11-17] MEDS ORDERED: morphine 4 MG/ML VIAL IV PRN (04:30)
[2016-11-17 04:50] VITALS: BP 131/71; RESP 18
[2016-11-17 05:51] LABS: BASOPHIL # 0.1 10^3/ul (0.0-0.1); BASOPHILS % 0.5 % (0.0-2.0); EOSINOPHILS # 0.1 10^3/ul (0.0-0.5); EOSINOPHILS % 0.5 % (0.0-7.0); HEMATOCRIT 37.2 % (37.0-47.0); HEMOGLOBIN 12.3 g/dl (12.0-16.0); LYMPHOCYTES # 1.3 10^3/ul (0.8-2.9); LYMPHOCYTES % 12.7 % (15.0-51.0); MEAN CORPUSCULAR HEMOGLOBIN 30.7 pg (29.0-33.0); MEAN CORPUSCULAR HGB CONC 33.1 g/dl (32.0-37.0); MEAN CORPUSCULAR VOLUME 92.8 fl (82.0-101.0); MEAN PLATELET VOLUME 9.3 fl (7.4-10.4); MONOCYTE # 0.6 10^3/ul (0.3-0.9); PLATELET COUNT 302 10^3/UL (140-415); RED BLOOD COUNT 4.01 10^6/ul (4.20-5.40); RED CELL DISTRIBUTION WIDTH 12.5 % (11.5-14.5); WHITE BLOOD COUNT 10.1 10^3/ul (4.8-10.8)
[2016-11-17 06:19] LABS: ALBUMIN 3.2 g/dl (3.3-4.9); ALBUMIN/GLOBULIN RATIO 1.18; BILIRUBIN,INDIRECT 0.4 mg/dl (0-1.1); BILIRUBIN,TOTAL 0.4 mg/dl (0.2-1.3); CALCIUM 8.4 mg/dl (8.4-10.2); CREATININE 0.5 mg/dl (0.44-1.00); MAGNESIUM 1.9 mg/dl (1.7-2.5); PHOSPHORUS 3.7 mg/dl (2.5-4.9); POTASSIUM 4.1 mmol/L (3.5-5.1); TOTAL PROTEIN 5.9 g/dl (6.1-8.1)
[2016-11-17 07:54] VITALS: BP 116/74; RESP 20
[2016-11-17] MEDS: TRIMETHOPRIM/SULFAMETHOX (DS) TAB PO SCH ×2 (08:42→20:54)
[2016-11-17] MEDS ORDERED: AL HYDROX/MG HYDROX/SIMETH 30 ML CUP PO PRN (09:38)
[2016-11-17] MEDS: HYDROCODONE/APAP (5/325) TAB PO PRN ×3 (09:59→19:24)
[2016-11-17 10:32] LABS: ADD UMIC NO; UR ASCORBIC ACID NEGATIVE (NEGATIVE); UR BILIRUBIN (Dip) NEGATIVE (NEGATIVE); UR BLOOD (Dip) NEGATIVE (NEGATIVE); UR CLARITY CLEAR (CLEAR); UR COLOR STRAW (YELLOW); UR GLUCOSE (Dip) NEGATIVE (NEGATIVE); UR KETONES (Dip) NEGATIVE (NEGATIVE); UR LEUKOCYTE ESTERASE (Dip) NEGATIVE Leu/ul (NEGATIVE); UR NITRITE (Dip) NEGATIVE (NEGATIVE); UR SPECIFIC GRAVITY (Dip) 1.004 (1.003-1.030); UR TOTAL PROTEIN (Dip) NEGATIVE (NEGATIVE); UR UROBILINOGEN (Dip) NEGATIVE (NEGATIVE)
--- NOTE | 2016-11-17 12:38 | HP ---
Date/Time of Note Date/Time of Note DATE: 11/17/16 TIME: 12:22 Assessment/Plan VTE Prophylaxis VTE Prophylaxis Intervention: SCD's Lines/Catheters IV Catheter Type (from Nrsg): Saline Lock Urinary Cath still in place: No Assessment/Plan Assessment/Plan - Abdominal Pain sec to sp sx -per surgery --CT Abd/Pelvis- Mild bladder wall thickening could suggest cystitis. Clinically correlate.Nonobstructing left renal calculi.Mild bibasilar atelectasis. -Nonobstructing left renal calculi - urology consult- dr Amado notified -Status post hysterectomy with moderate pelvic stranding and mild free fluid. No drainable fluid collection is identified. There is mild postsurgical pneumoperitoneum. - Hx Endometrial hyperplasia - status post laparoscopic total hysterectomy and bilateral salpingo- oophorectomy, lymph node dissection and ureteral dissection. - per surgery - diet per surgery - IV morphine for pain control and IV Zofran for nausea and vomiting. - SCDs for DVT prophylaxis. Andrés Sweeney HPI/ROS Admit Date/Time Admit Date/Time Nov 17, 2016 at 02:42 Hx of Present Illness HPI This is a very pleasant 46-year-old female who comes in with complaints of abdominal pain. She status post hysterectomy. No nausea no vomiting no chills. No other current complaints. ROS All systems reviewed and are negative except as per history of present illness. Medications Home Meds Active Scripts Docusate Sodium* (Colace*) 100 Mg Capsule, 100 MG PO DAILY, #20 CAP Prov:YUDITH WHATLEY 11/15/16 Pantoprazole* (Protonix*) 20 Mg Tablet., 20 MG PO DAILY, #20 TAB Prov:YUDITH WHATLEY 11/15/16 Hydrocodone Bit-Acetaminophen (Hydrocodone Bit-APAP) 5-325MG Tablet, 1 TAB PO Q6H Y for pain, #10 TAB Prov:YUDITH WHATLEY 11/15/16 Reported Medications Levothyroxine Sodium* (Levoxyl*) 75 Mcg Tablet, 75 MCG PO BEFORE BREAKFAST, #30 TAB 09/01/16 Discontinued Reported Medications Metronidazole* (Flagyl*) 500 Mg Tablet, 500 MG PO BID, TAB 11/13/16 Allergies Allergies: Coded Allergies: Penicillins (Verified Allergy, Unknown, SOB, RASH, 09/01/16) ciprofloxacin (Verified Allergy, Unknown, SOB, RASH, 09/01/16) ROS Respiratory: no complaints Cardiovascular: no complaints Gastrointestinal: pain Genitourinary: no complaints Musculoskeletal: no complaints Skin: no complaints Neurologic: no complaints Endocrine: no complaints PMH/Family/Social Past Medical History PMhx/Soc Medical and Surgical Hx: pt denies Medical Hx History of Surgery: Yes (CSECTION) Anesthesia Reaction: No Hx Neurological Disorder: No Hx Respiratory Disorders: No Hx Cardiac Disorders: No Hx Psychiatric Problems: No Hx Miscellaneous Medical Probl: No Hx Alcohol Use: Yes (SOCIALY) Hx Substance Use: No Hx Tobacco Use: No Smoking Status: Never smoker Past Surgical History Past Surgical Hx: other Social History Smoking Status: Never smoker Exam/Review of Systems Vital Signs Vitals Vital Signs Date Time Temp Pulse Resp B/P Pulse Ox O2 Delivery O2 Flow Rate FiO2 11/17/16 07:54 98.4 84 20 116/74 96 11/17/16 03:15 Room Air 11/17/16 00:30 2 Exam Constitutional: alert, oriented, well developed Respiratory: clear to auscultation, normal air movement Cardiovascular: nl pulses, regular rate and rhythm Gastrointestinal: soft, tender Musculoskeletal: nl extremities to inspection Extremities: normal pulses Neurological: nl mental status Skin: nl turgor Labs Result Diagram: 11/17/1652011/17/16520 Medications Medications Current Medications Morphine Sulfate (morphine) 3 mg Q4H PRN IV PAIN; Start 11/17/16 at 04:30 Ondansetron HCl (Zofran Inj) 4 mg Q6H PRN IV NAUSEA AND/OR VOMITING; Start 02/21 at 04:30 Acetaminophen (Tylenol Tab) 650 mg Q6H PRN PO PAIN AND OR ELEVATED TEMP; Start 11/17/16 at 04:30 Trimethoprim/ Sulfamethoxazole (Bactrim (Ds)) 1 tab Q12 PO Last administered on 11/17/16 08:42; Admin Dose 1 TAB; Start 11/17/16 at 09:00 Acetaminophen/ Hydrocodone Bitart ([place] (5/325)) 1 tab Q4H PRN PO PAIN Last administered on 11/17/16 09:59; Admin Dose 1 TAB; Start 11/17/16 at 09:38 Al Hydrox/Mg Hydrox/Simethicone (Mag-Al Plus) 30 ml Q6H PRN PO GASTROINTESTINAL UPSET Last administered on 11/17/16t 09:59; Admin Dose 30 ML; Start 11/17/16 at 09:38 Procedures Procedures PROCEDURE: CT Abdomen and pelvis without contrast. CLINICAL INDICATION: Abdominal pain. IMPRESSION: Status post hysterectomy with moderate pelvic stranding and mild free fluid. No drainable fluid collection is identified. There is mild postsurgical pneumoperitoneum. Mild bladder wall thickening could suggest cystitis. Clinically correlate. Nonobstructing left renal calculi. Mild bibasilar atelectasis. YUDITH WHATLEY Nov 17, 2016 12:33
[2016-11-17] MEDS ORDERED: DOCUSATE SODIUM 100 MG CAP PO ONE (15:06)
[2016-11-17] MEDS: DOCUSATE SODIUM 100 MG CAP PO SCH (15:08)
[2016-11-17 15:09] VITALS: BP 122/74; RESP 18
[2016-11-17 19:46] VITALS: BP 112/64; RESP 20
--- NOTE | 2016-11-17 20:33 | CONS ---
Date/Time of Note Date/Time of Note DATE: 11/17/16 TIME: 20:21 Assessment/Plan Assessment/Plan Chief Complaint/Hosp Course Abdominal pain status post laparoscopic hysterectomy, patient does have 2 stones in the lower pole of the left kidney and these are not obstructing. The stones are not the reason for her pain. The bladder wall is a little thick, we will check urine for culture and sensitivity to rule out any infection As far as the stones are concerned with just watch them , At the present she does not need any treatment for them Problems: Consultation Date/Type/Reason Admit Date/Time Nov 17, 2016 at 02:42 Date of Consultation: Nov 17, 2016 Type of Consultation: Urology Reason for Consultation Left renal stone Referring Provider: MARYANA FERRARO MD 46-year-old female underwent laparoscopic hysterectomy last week on Wednesday and was discharged home on Wednesday. She presented to the hospital today was abdominal pain and chest pain and was admitted. CT scan of the abdomen and pelvis showed a stone in the left kidney also thickening of the bladder wall suspicious for cystitis. Therefore a urological consultation was requested Constitutional: no complaints Eyes: no complaints ENT: no complaints Respiratory: no complaints, No cough Cardiovascular: chest pain, no complaints Gastrointestinal: pain Genitourinary: no complaints, other (States she may have passed some bloody urine, she denies any dysuria urgency or urgency incontinence) Musculoskeletal: no complaints Skin: no complaints Neurologic: no complaints Endocrine: no complaints Lymphatic: no complaints Psychological: no complaints Immunologic: no complaints Past Medical History Medical History: no pertinent history Past Surgical History Past Surgical Hx: other (1 , laparoscopic hysterectomy) Family History Significant Family History: no pertinent family hx Social History Alcohol Use: occasionally Smoking Status: Never smoker Drug Use: none Other Social History She is a 3 para 3, 2 normal deliveries and 1 Exam/Review of Systems Vital Signs Vitals Vital Signs Date Time Temp Pulse Resp B/P Pulse Ox O2 Delivery O2 Flow Rate FiO2 11/17/16 19:46 98.2 70 20 112/64 96 11/17/16 03:15 Room Air 11/17/16 00:30 2 Exam Constitutional: alert, oriented Psych: no complaints Head: normocephalic Eyes: nl conjunctiva ENMT: nl external ears & nose Neck: supple Respiratory: normal air movement Cardiovascular: No edema Gastrointestinal: other (Has bandage from the laparoscopic hysterectomy), tender Genitourinary - Female: other (Pelvic exam no masses no discharge she still have the cervix), No CVA tenderness Musculoskeletal: nl extremities to inspection Extremities: No calf tenderness, No edema Results CT scan of the abdomen and pelvis: FINDINGS: Evaluation of the lung bases demonstrates mild bibasilar atelectasis. Abdomen: The liver is normal in size. There is no focal mass or dilatation of the biliary tree. The gallbladder is not distended. The spleen, pancreas and bilateral adrenal glands are within normal limits. Bilateral kidneys are normal in size with no contour deforming mass identified. There are two calculi within the lower pole of the left kidney measuring 6 x 2 mm and 1 mm. There is no hydronephrosis or hydroureter. There is no retroperitoneal adenopathy. The abdominal aorta is of normal caliber. There is subcutaneous stranding and air across the at the level of the umbilicus and inguinal region. There is moderate retained stool within the colon. There is no bowel obstruction. There is mild pneumoperitoneum. A normal appendix is identified. There is no diverticulosis or diverticulitis. There is no ascites. Pelvis: The bladder demonstrates mild wall thickening and contains small amount of air. The patient is status post hysterectomy. There is moderate pelvic stranding and mild free fluid. There is no significant pelvic adenopathy or free fluid. There is subcutaneous stranding and nodularity over bilateral buttocks suggestive of cosmetic injections. Evaluation of the osseous structures demonstrates no suspicious lytic or blastic lesion. Result Diagram: 11/17/1652011/17/16 05 Results 24 hrs Laboratory Tests Test 11/17/16 00:20 11/17/16 05:21 11/17/16 10:00 White Blood Count 11.7 #H 10.1 Red Blood Count 4.84 # 4.01 L Hemoglobin 14.8 # 12.3 Hematocrit 44.2 # 37.2 Mean Corpuscular Volume 91.3 92.8 Mean Corpuscular Hemoglobin 30.6 30.7 Mean Corpuscular Hemoglobin Concent 33.5 33.1 Red Cell Distribution Width 12.4 12.5 Platelet Count 335 # 302 Mean Platelet Volume 9.3 9.3 Neutrophils % 80.5 H 80.0 H Lymphocytes % 12.6 L 12.7 L Monocytes % 5.3 6.0 Eosinophils % 0.8 0.5 Basophils % 0.5 0.5 Nucleated Red Blood Cells % 0.0 0.0 Neutrophils # (Manual) 9.4 H 8.1 H Lymphocytes # 1.5 1.3 Monocytes # 0.6 0.6 Eosinophils # 0.1 0.1 Basophils # 0.1 0.1 Nucleated Red Blood Cells # 0.0 0.0 Prothrombin Time 12.6 Prothrombin Time Ratio 1.0 INR International Normalized Ratio 0.94 Activated Partial Thromboplast Time 29.2 Sodium Level 134 L 135 Potassium Level 4.1 4.1 Chloride Level 98 102 Carbon Dioxide Level 28 29 Anion Gap 12 8 Blood Urea Nitrogen 8 7 Creatinine 0.56 0.50 Glucose Level 133 # 111 Calcium Level 9.5 8.4 Total Bilirubin 0.5 0.4 Direct Bilirubin 0.00 0.00 Indirect Bilirubin 0.5 0.4 Aspartate Amino Transf (AST/SGOT) 43 33 Alanine Aminotransferase (ALT/SGPT) 42 38 Alkaline Phosphatase 72 48 Troponin I < 0.012 B-Type Natriuretic Peptide 112 Total Protein 7.7 5.9 #L Albumin 4.2 3.2 #L Globulin 3.50 H 2.70 Albumin/Globulin Ratio 1.20 1.18 Lipase 30 Phosphorus Level 3.7 Magnesium Level 1.9 Urine Color STRAW Urine Clarity CLEAR Urine pH 8.0 Urine Specific [place] 1.004 Urine Ketones NEGATIVE Urine Nitrite NEGATIVE Urine Bilirubin NEGATIVE Urine Urobilinogen NEGATIVE Urine Leukocyte Esterase NEGATIVE Urine Hemoglobin NEGATIVE Urine Glucose NEGATIVE Urine Total Protein NEGATIVE Medications Medications Current Medications Morphine Sulfate (morphine) 3 mg Q4H PRN IV PAIN; Start 11/17/16 at 04:30 Ondansetron HCl (Zofran Inj) 4 mg Q6H PRN IV NAUSEA AND/OR VOMITING; Start 02/21 at 04:30 Acetaminophen (Tylenol Tab) 650 mg Q6H PRN PO PAIN AND OR ELEVATED TEMP; Start 11/17/16 at 04:30 Trimethoprim/ Sulfamethoxazole (Bactrim (Ds)) 1 tab Q12 PO Last administered on 11/17/16 08:42; Admin Dose 1 TAB; Start 11/17/16 at 09:00 Acetaminophen/ Hydrocodone Bitart ([place] (5/325)) 1 tab Q4H PRN PO PAIN Last administered on 11/17/16 19:24; Admin Dose 1 TAB; Start 11/17/16 at 09:38 Al Hydrox/Mg Hydrox/Simethicone (Mag-Al Plus) 30 ml Q6H PRN PO GASTROINTESTINAL UPSET Last administered on 11/17/16 09:59; Admin Dose 30 ML; Start 11/17/16 at 09:38 Docusate Sodium (Colace) 100 mg DAILY PO Last administered on 11/17/16 15:08; Admin Dose 100 MG; Start 11/18/16 at 09:00 Pantoprazole Sodium (Protonix) 20 mg DAILY@06 PO ; Start 11/18/16 at 06:00 ALEKSEY CRANDALL MD Nov 17, 2016 20:31
[2016-11-18] MEDS: HYDROCODONE/APAP (5/325) TAB PO PRN ×5 (00:30→20:08)
[2016-11-18 01:52] VITALS: BP 110/59; RESP 20
[2016-11-18 05:58] LABS: BASOPHIL # 0.1 10^3/ul (0.0-0.1); BASOPHILS % 0.8 % (0.0-2.0); EOSINOPHILS # 0.3 10^3/ul (0.0-0.5); EOSINOPHILS % 3.2 % (0.0-7.0); HEMOGLOBIN 12.7 g/dl (12.0-16.0); LYMPHOCYTES # 1.9 10^3/ul (0.8-2.9); LYMPHOCYTES % 18.4 % (15.0-51.0); MEAN CORPUSCULAR HEMOGLOBIN 31.1 pg (29.0-33.0); MEAN CORPUSCULAR HGB CONC 33.4 g/dl (32.0-37.0); MEAN CORPUSCULAR VOLUME 92.9 fl (82.0-101.0); MEAN PLATELET VOLUME 9.5 fl (7.4-10.4); MONOCYTE # 0.7 10^3/ul (0.3-0.9); MONOCYTES % 6.5 % (0.0-11.0); NEUTROPHILS % 70.7 % (39.0-77.0); PLATELET COUNT 319 10^3/UL (140-415); RED BLOOD COUNT 4.09 10^6/ul (4.20-5.40); RED CELL DISTRIBUTION WIDTH 12.5 % (11.5-14.5); WHITE BLOOD COUNT 10.1 10^3/ul (4.8-10.8)
[2016-11-18] MEDS: PANTOPRAZOLE SODIUM 20 MG TABEC PO SCH (06:03)
[2016-11-18] MEDS: LEVOTHYROXINE 75 MCG TAB PO SCH (06:03)
[2016-11-18 06:40] LABS: CALCIUM 8.6 mg/dl (8.4-10.2); CREATININE 0.59 mg/dl (0.44-1.00); POTASSIUM 4.2 mmol/L (3.5-5.1)
[2016-11-18 07:31] VITALS: BP 105/62; RESP 16
[2016-11-18] MEDS: DOCUSATE SODIUM 100 MG CAP PO SCH (09:00)
[2016-11-18] MEDS: TRIMETHOPRIM/SULFAMETHOX (DS) TAB PO SCH ×2 (09:00→20:08)
--- NOTE | 2016-11-18 09:53 | RADRPT ---
PROCEDURE: Abdominal Series. CLINICAL INDICATION: Left renal calculus TECHNIQUE: Two views of the abdomen. COMPARISON: CT abdomen pelvis 11/17/2016 FINDINGS: There is a nonspecific bowel gas pattern. There is no evidence of large or small bowel obstruction. The small left renal calculus seen on recent CT scan is not appreciated by plain film radiography. T here are no abnormal calcifications overlying the urinary tracts. The osseous structures are unremar kable. IMPRESSION: 1. Unremarkable abdominal radograph series. 2. Small left renal calculus seen on recent CT scan is not appreciated by plain film radiography pa ra RPTAT: AA .Rahul Torres MD, MD Date Time Electronically viewed and signed by .Rahul Torres MD, on 11/18/2016 09:53 .B/
[2016-11-18 14:00] VITALS: BP 104/59; RESP 18
--- NOTE | 2016-11-18 14:25 | PN ---
Date/Time of Note Date/Time of Note DATE: 11/18/16 TIME: 14:24 Assessment/Plan VTE Prophylaxis VTE Prophylaxis Intervention: SCD's Lines/Catheters IV Catheter Type (from Nrs): Saline Lock Urinary Cath still in place: No Assessment/Plan Assessment/Plan - Abdominal Pain sec to sp sx -per surgery --CT Abd/Pelvis- Mild bladder wall thickening could suggest cystitis. Clinically correlate.Nonobstructing left renal calculi.Mild bibasilar atelectasis. -Nonobstructing left renal calculi - urology consult- dr Amado notified -Status post hysterectomy with moderate pelvic stranding and mild free fluid. No drainable fluid collection is identified. There is mild postsurgical pneumoperitoneum. - Hx Endometrial hyperplasia - status post laparoscopic total hysterectomy and bilateral salpingo- oophorectomy, lymph node dissection and ureteral dissection. - per surgery - diet per surgery - IV morphine for pain control and IV Zofran for nausea and vomiting. - SCDs for DVT prophylaxis. Andrés Sweeney Subjective 24 Hr Interval Summary Constitutional: requiring IVF Gastrointestinal: pain Genitourinary: flank pain Exam/Review of Systems Vital Signs Vitals Vital Signs Date Time Temp Pulse Resp B/P Pulse Ox O2 Delivery O2 Flow Rate FiO2 11/18/16 07:31 98.4 77 16 105/62 96 11/17/16 03:15 Room Air 11/17/16 00:30 2 Intake and Output 11/17/16 11/17/16 11/18/16 15:00 23:00 07:00 Intake Total 1120 ml 600 ml Balance 1120 ml 600 ml Exam Constitutional: alert, oriented, well developed Respiratory: clear to auscultation, normal air movement Cardiovascular: nl pulses, regular rate and rhythm Gastrointestinal: soft, tender Genitourinary - Female: other Musculoskeletal: nl extremities to inspection Extremities: normal pulses Neurological: nl mental status, nl speech Results Result Diagram: 11/18/1652311/18/1624 Results 24 hrs Laboratory Tests Test 11/18/16 05:24 White Blood Count 10.1 Red Blood Count 4.09 L Hemoglobin 12.7 Hematocrit 38.0 Mean Corpuscular Volume 92.9 Mean Corpuscular Hemoglobin 31.1 Mean Corpuscular Hemoglobin Concent 33.4 Red Cell Distribution Width 12.5 Platelet Count 319 Mean Platelet Volume 9.5 Neutrophils % 70.7 Lymphocytes % 18.4 Monocytes % 6.5 Eosinophils % 3.2 Basophils % 0.8 Nucleated Red Blood Cells % 0.0 Neutrophils # (Manual) 7.1 Lymphocytes # 1.9 Monocytes # 0.7 Eosinophils # 0.3 Basophils # 0.1 Nucleated Red Blood Cells # 0.0 Sodium Level 135 Potassium Level 4.2 Chloride Level 103 Carbon Dioxide Level 25 Anion Gap 11 Blood Urea Nitrogen 8 Creatinine 0.59 Glucose Level 99 Calcium Level 8.6 Medications Medications Current Medications Morphine Sulfate (morphine) 3 mg Q4H PRN IV PAIN; Start 11/17/16 at 04:30 Ondansetron HCl (Zofran Inj) 4 mg Q6H PRN IV NAUSEA AND/OR VOMITING; Start 02/21 at 04:30 Acetaminophen (Tylenol Tab) 650 mg Q6H PRN PO PAIN AND OR ELEVATED TEMP; Start 11/17/16 at 04:30 Trimethoprim/ Sulfamethoxazole (Bactrim (Ds)) 1 tab Q12 PO Last administered on 11/18/16 09:00; Admin Dose 1 TAB; Start 11/17/16 at 09:00 Acetaminophen/ Hydrocodone Bitart ([place] (5/325)) 1 tab Q4H PRN PO PAIN Last administered on 11/18/16 10:57; Admin Dose 1 TAB; Start 11/17/16 at 09:38 Al Hydrox/Mg Hydrox/Simethicone (Mag-Al Plus) 30 ml Q6H PRN PO GASTROINTESTINAL UPSET Last administered on 11/17/16 09:59; Admin Dose 30 ML; Start 11/17/16 at 09:38 Docusate Sodium (Colace) 100 mg DAILY PO Last administered on 11/18/16 09:00; Admin Dose 100 MG; Start 11/18/16 at 09:00 Pantoprazole Sodium (Protonix) 20 mg DAILY@06 PO Last administered on 06:03; Admin Dose 20 MG; Start 11/18/16 at 06:00 YUDITH WHATLEY Nov 18, 2016 14:25
[2016-11-18 20:00] VITALS: BP 106/72; RESP 18
[2016-11-19] MEDS: HYDROCODONE/APAP (5/325) TAB PO PRN ×6 (00:11→23:27)
[2016-11-19 02:28] VITALS: BP 100/62; RESP 18
[2016-11-19 05:46] LABS: BASOPHIL # 0.1 10^3/ul (0.0-0.1); BASOPHILS % 0.8 % (0.0-2.0); EOSINOPHILS # 0.4 10^3/ul (0.0-0.5); EOSINOPHILS % 4.6 % (0.0-7.0); HEMATOCRIT 37.4 % (37.0-47.0); HEMOGLOBIN 12.2 g/dl (12.0-16.0); LYMPHOCYTES # 1.3 10^3/ul (0.8-2.9); LYMPHOCYTES % 16.4 % (15.0-51.0); MEAN CORPUSCULAR HEMOGLOBIN 29.7 pg (29.0-33.0); MEAN CORPUSCULAR HGB CONC 32.6 g/dl (32.0-37.0); MEAN PLATELET VOLUME 9.4 fl (7.4-10.4); MONOCYTE # 0.6 10^3/ul (0.3-0.9); MONOCYTES % 7.3 % (0.0-11.0); NEUTROPHIL # 5.6 10^3/ul (1.6-7.5); NEUTROPHILS % 70.4 % (39.0-77.0); PLATELET COUNT 331 10^3/UL (140-415); RED BLOOD COUNT 4.11 10^6/ul (4.20-5.40); RED CELL DISTRIBUTION WIDTH 12.5 % (11.5-14.5)
[2016-11-19] MEDS: PANTOPRAZOLE SODIUM 20 MG TABEC PO SCH (06:03)
[2016-11-19] MEDS: LEVOTHYROXINE 75 MCG TAB PO SCH (06:03)
[2016-11-19 06:28] LABS: CALCIUM 8.8 mg/dl (8.4-10.2); CREATININE 0.57 mg/dl (0.44-1.00); POTASSIUM 4.2 mmol/L (3.5-5.1)
[2016-11-19 08:13] VITALS: BP 109/74; RESP 18
[2016-11-19] MEDS: DOCUSATE SODIUM 100 MG CAP PO SCH (09:05)
[2016-11-19] MEDS: TRIMETHOPRIM/SULFAMETHOX (DS) TAB PO SCH ×2 (09:05→21:10)
[2016-11-19 14:00] VITALS: BP 110/59; RESP 18
--- NOTE | 2016-11-19 15:05 | PN ---
Date/Time of Note Date/Time of Note DATE: 11/19/16 TIME: 15:01 Assessment/Plan VTE Prophylaxis VTE Prophylaxis Intervention: other Lines/Catheters IV Catheter Type (from Nrsg): Saline Lock Urinary Cath still in place: No Assessment/Plan Assessment/Plan - Abdominal Pain sec to sp sx. dr Nandini Duran -per surgery --CT Abd/Pelvis- Mild bladder wall thickening could suggest cystitis. Clinically correlate.Nonobstructing left renal calculi.Mild bibasilar atelectasis. -Nonobstructing left renal calculi - urology consult- dr Amado -Status post hysterectomy with moderate pelvic stranding and mild free fluid. No drainable fluid collection is identified. There is mild postsurgical pneumoperitoneum. - Hx Endometrial hyperplasia - status post laparoscopic total hysterectomy and bilateral salpingo- oophorectomy, lymph node dissection and ureteral dissection. - per surgery - diet per surgery - IV morphine for pain control and IV Zofran for nausea and vomiting. - SCDs for DVT prophylaxis. Andrés Sweeney Subjective 24 Hr Interval Summary Constitutional: requiring IVF Respiratory: no complaints Cardiovascular: no complaints Gastrointestinal: pain Exam/Review of Systems Vital Signs Vitals Vital Signs Date Time Temp Pulse Resp B/P Pulse Ox O2 Delivery O2 Flow Rate FiO2 11/19/16 08:13 97.6 73 18 109/74 92 11/17/16 03:15 Room Air 11/17/16 00:30 2 Intake and Output 11/18/16 11/18/16 11/19/16 15:00 23:00 07:00 Intake Total 1880 ml 500 ml Balance 1880 ml 500 ml Exam Constitutional: alert, oriented, well developed Respiratory: clear to auscultation, normal air movement Cardiovascular: nl pulses, regular rate and rhythm Gastrointestinal: soft, tender Musculoskeletal: nl extremities to inspection Extremities: normal pulses Neurological: nl mental status, nl speech Skin: other Results Result Diagram: 11/19/16 0500 11/19/16 0500 Results 24 hrs Laboratory Tests Test 11/19/16 05:00 White Blood Count 8.0 # Red Blood Count 4.11 L Hemoglobin 12.2 Hematocrit 37.4 Mean Corpuscular Volume 91.0 Mean Corpuscular Hemoglobin 29.7 Mean Corpuscular Hemoglobin Concent 32.6 Red Cell Distribution Width 12.5 Platelet Count 331 Mean Platelet Volume 9.4 Neutrophils % 70.4 Lymphocytes % 16.4 Monocytes % 7.3 Eosinophils % 4.6 Basophils % 0.8 Nucleated Red Blood Cells % 0.0 Neutrophils # 5.6 Lymphocytes # 1.3 Monocytes # 0.6 Eosinophils # 0.4 Basophils # 0.1 Nucleated Red Blood Cells # 0.0 Sodium Level 134 L Potassium Level 4.2 Chloride Level 101 Carbon Dioxide Level 29 Anion Gap 8 Blood Urea Nitrogen 9 Creatinine 0.57 Glucose Level 96 Calcium Level 8.8 Medications Medications Current Medications Morphine Sulfate (morphine) 3 mg Q4H PRN IV PAIN; Start 11/17/16 at 04:30 Ondansetron HCl (Zofran Inj) 4 mg Q6H PRN IV NAUSEA AND/OR VOMITING; Start 02/21 at 04:30 Acetaminophen (Tylenol Tab) 650 mg Q6H PRN PO PAIN AND OR ELEVATED TEMP; Start 11/17/16 at 04:30 Trimethoprim/ Sulfamethoxazole (Bactrim (Ds)) 1 tab Q12 PO Last administered on 11/19/16 09:05; Admin Dose 1 TAB; Start 11/17/16 at 09:00 Acetaminophen/ Hydrocodone Bitart ([place] (5/325)) 1 tab Q4H PRN PO PAIN Last administered on 11/19/16 14:54; Admin Dose 1 TAB; Start 11/17/16 at 09:38 Al Hydrox/Mg Hydrox/Simethicone (Mag-Al Plus) 30 ml Q6H PRN PO GASTROINTESTINAL UPSET Last administered on 11/17/16 09:59; Admin Dose 30 ML; Start 11/17/16 at 09:38 Docusate Sodium (Colace) 100 mg DAILY PO Last administered on 11/19/16 09:05; Admin Dose 100 MG; Start 11/18/16 at 09:00 Pantoprazole Sodium (Protonix) 20 mg DAILY@06 PO Last administered on 06:03; Admin Dose 20 MG; Start 11/18/16 at 06:00 YUDITH WHATLEY Nov 19, 2016 15:05
[2016-11-19] MEDS ORDERED: BISACODYL (EC) 5 MG TAB PO PRN (15:30)
[2016-11-19] MEDS ORDERED: BARIUM SULF 2% 450 ML BTL (BERRY SMOOTHIE) PO ONE ×2 (17:00→17:30)
[2016-11-19] MEDS ORDERED: SOD CHLORIDE 0.9% 100 ML ONE (17:24)
[2016-11-19] MEDS ORDERED: IOHEXOL 300MG/ML 150 ML BTL ONE (17:24)
--- NOTE | 2016-11-19 19:22 | PN ---
Date/Time of Note Date/Time of Note DATE: 11/19/16 TIME: 19:19 Assessment/Plan VTE Prophylaxis VTE Prophylaxis Intervention: ambulation Lines/Catheters [facility] Saline Lock Urinary Cath still in place: No Assessment/Plan Chief Complaint/Hosp Course Abdominal pain status post laparoscopic hysterectomy, patient does have 2 stones in the lower pole of the left kidney and these are not obstructing. The stones are not the reason for her pain. The bladder wall is a little thick, Urine for culture and sensitivity : No growth in 48 hours. As far as the stones are concerned with just watch them , At the present she does not need any treatment for them Problems: Subjective 24 Hr Interval Summary Constitutional: improved, no complaints Eyes: no complaints ENT: no complaints Respiratory: no complaints Cardiovascular: no complaints Gastrointestinal: no complaints Genitourinary: no complaints, No dysuria, No flank pain Musculoskeletal: no complaints Skin: no complaints Exam/Review of Systems Vital Signs Vitals Vital Signs Date Time Temp Pulse Resp B/P Pulse Ox O2 Delivery O2 Flow Rate FiO2 11/19/16 14:00 98.5 81 18 110/59 94 11/17/16 03:15 Room Air 11/17/16 00:30 2 Intake and Output 11/18/16 11/18/16 11/19/16 15:00 23:00 07:00 Intake Total 1880 ml 500 ml Balance 1880 ml 500 ml Exam Constitutional: alert, oriented Psych: no complaints Head: normocephalic Eyes: nl conjunctiva ENMT: nl external ears & nose Neck: non-tender, supple Respiratory: normal air movement Cardiovascular: No edema Gastrointestinal: soft Genitourinary - Female: other (Urine culture no growth in 48 hours), No CVA tenderness Musculoskeletal: nl extremities to inspection Extremities: No calf tenderness, No edema Results Result Diagram: 11/19/16 0500 11/19/16 0500 Results 24 hrs Laboratory Tests Test 11/19/16 05:00 White Blood Count 8.0 # Red Blood Count 4.11 L Hemoglobin 12.2 Hematocrit 37.4 Mean Corpuscular Volume 91.0 Mean Corpuscular Hemoglobin 29.7 Mean Corpuscular Hemoglobin Concent 32.6 Red Cell Distribution Width 12.5 Platelet Count 331 Mean Platelet Volume 9.4 Neutrophils % 70.4 Lymphocytes % 16.4 Monocytes % 7.3 Eosinophils % 4.6 Basophils % 0.8 Nucleated Red Blood Cells % 0.0 Neutrophils # 5.6 Lymphocytes # 1.3 Monocytes # 0.6 Eosinophils # 0.4 Basophils # 0.1 Nucleated Red Blood Cells # 0.0 Sodium Level 134 L Potassium Level 4.2 Chloride Level 101 Carbon Dioxide Level 29 Anion Gap 8 Blood Urea Nitrogen 9 Creatinine 0.57 Glucose Level 96 Calcium Level 8.8 Medications Medications Current Medications Morphine Sulfate (morphine) 3 mg Q4H PRN IV PAIN; Start 11/17/16 at 04:30 Ondansetron HCl (Zofran Inj) 4 mg Q6H PRN IV NAUSEA AND/OR VOMITING; Start 02/21 at 04:30 Acetaminophen (Tylenol Tab) 650 mg Q6H PRN PO PAIN AND OR ELEVATED TEMP; Start 11/17/16 at 04:30 Trimethoprim/ Sulfamethoxazole (Bactrim (Ds)) 1 tab Q12 PO Last administered on 11/19/16 09:05; Admin Dose 1 TAB; Start 11/17/16 at 09:00 Acetaminophen/ Hydrocodone Bitart ([place] (5/325)) 1 tab Q4H PRN PO PAIN Last administered on 11/19/16 19:11; Admin Dose 1 TAB; Start 11/17/16 at 09:38 Al Hydrox/Mg Hydrox/Simethicone (Mag-Al Plus) 30 ml Q6H PRN PO GASTROINTESTINAL UPSET Last administered on 11/17/16 09:59; Admin Dose 30 ML; Start 11/17/16 at 09:38 Docusate Sodium (Colace) 100 mg DAILY PO Last administered on 11/19/16 09:05; Admin Dose 100 MG; Start 11/18/16 at 09:00 Pantoprazole Sodium (Protonix) 20 mg DAILY@06 PO Last administered on 06:03; Admin Dose 20 MG; Start 11/18/16 at 06:00 Bisacodyl (Dulcolax) 5 mg DAILY PRN PO CONSTIPATION; Start 11/19/16 at 15:30 ALEKSEY CRANDALL MD Nov 19, 2016 19:22
[2016-11-19 20:13] VITALS: BP 115/73; RESP 18
--- NOTE | 2016-11-19 22:04 | RADRPT ---
PROCEDURE: CT Abdomen and Pelvis with contrast. CLINICAL INDICATION: Abdominal pain, status post laparoscopic hysterectomy last week. TECHNIQUE: A CT scan of the abdomen and pelvis was performed with intravenous contrast. The patie nt was scanned following the uncomplicated intravenous administration of 80 cc of Omnipaque-300. 900 cc oral Readicat contrast were administered during examination without complication. Coronal and sa gittal reformatted images were obtained from the axial source images. Images were reviewed on a high -resolution PACS workstation. CTDIvol: 9.44 mGy. DLP: 514.62 mGy-cm. One or more of the following dose reduction techniques were used: - Automated exposure control. - Adjustment of the mA and/or kV according to patient size. - Use of iterative reconstruction technique. COMPARISON: 11/17/2016 FINDINGS: The lung bases are clear. There is scattered hepatic hypodensities measuring up to 9 mm, nonspecific. No follow-up of these le sions is necessary unless there is concern for metastatic disease. The gallbladder is normal in appe arance. The common bile duct is not dilated. The spleen is not enlarged. No pancreatic lesion is jaspal ntified and there is no pancreatic ductal dilatation. The adrenal glands are unremarkable. The kidneys are normal in size. There is no perinephric fat stranding. No hydronephrosis is seen. Th ere is a 7 mm low-attenuation right renal lesion, nonspecific but possibly a cyst. No follow-up of t his lesion is necessary The small and large bowel are normal in caliber. There is no bowel wall thickening. The appendix is not identified. The patient is status post recent laparoscopic hysterectomy. There is fluid and fat infiltration in the hysterectomy bed. Some areas of irregular rim enhancement is seen adjacent to the fluid, possibl y representing early abscess formation. For example, there is a 3.3 x 4.7 cm incompletely encapsulat ed fluid collection between the urinary bladder and distal sigmoid colon. There is minimal air in th e urinary bladder, probably related to recent instrumentation. No lymphadenopathy is identified. There is no ascites. Mild postsurgical pneumoperitoneum is again n oted. There are no arterial calcifications. There is extensive subcutaneous fat alteration and nodularity in both buttocks, possibly related to cosmetic injections. No suspicious osseous lesion is idenitified. IMPRESSION: 1. Status post recent laparoscopic hysterectomy. 2. Fluid and fat infiltration in the hysterectomy bed. Some areas of irregular linear enhancement a re seen adjacent to the fluid, suspicious for early abscess formation. For example, there is a 3.3 x 4.7 cm incompletely encapsulated fluid collection between the urinary bladder and distal sigmoid co jovanna. 3. Mild postoperative pneumoperitoneum. RPTAT: HTAR .Jalen Ruano MD, MD Date Time Electronically viewed and signed by .Jalen Ruano MD, on 11/19/2016 22:04 .R/
[2016-11-20 02:46] VITALS: BP 98/56; RESP 18
[2016-11-20] MEDS: HYDROCODONE/APAP (5/325) TAB PO PRN ×2 (05:23→17:05)
[2016-11-20] MEDS: PANTOPRAZOLE SODIUM 20 MG TABEC PO SCH (05:23)
[2016-11-20] MEDS: LEVOTHYROXINE 75 MCG TAB PO SCH (06:09)
[2016-11-20 06:24] LABS: BASOPHIL # 0.1 10^3/ul (0.0-0.1); BASOPHILS % 0.6 % (0.0-2.0); EOSINOPHILS # 0.4 10^3/ul (0.0-0.5); EOSINOPHILS % 4.5 % (0.0-7.0); HEMATOCRIT 37.4 % (37.0-47.0); HEMOGLOBIN 12.3 g/dl (12.0-16.0); LYMPHOCYTES # 1.9 10^3/ul (0.8-2.9); LYMPHOCYTES % 23.5 % (15.0-51.0); MEAN CORPUSCULAR HEMOGLOBIN 30.1 pg (29.0-33.0); MEAN CORPUSCULAR HGB CONC 32.9 g/dl (32.0-37.0); MEAN CORPUSCULAR VOLUME 91.4 fl (82.0-101.0); MEAN PLATELET VOLUME 9.1 fl (7.4-10.4); MONOCYTE # 0.6 10^3/ul (0.3-0.9); MONOCYTES % 7.1 % (0.0-11.0); NEUTROPHILS % 63.9 % (39.0-77.0); PLATELET COUNT 362 10^3/UL (140-415); RED BLOOD COUNT 4.09 10^6/ul (4.20-5.40); RED CELL DISTRIBUTION WIDTH 12.5 % (11.5-14.5); WHITE BLOOD COUNT 7.9 10^3/ul (4.8-10.8)
[2016-11-20 06:47] LABS: CREATININE 0.59 mg/dl (0.44-1.00); POTASSIUM 4.1 mmol/L (3.5-5.1)
[2016-11-20 07:46] VITALS: BP 118/74; RESP 18
[2016-11-20] MEDS: TRIMETHOPRIM/SULFAMETHOX (DS) TAB PO SCH ×2 (08:18→21:07)
[2016-11-20] MEDS: DOCUSATE SODIUM 100 MG CAP PO SCH (08:18)
[2016-11-20] MEDS: ONDANSETRON 4 MG INJ IV PRN (09:28)
--- NOTE | 2016-11-20 13:48 | PN ---
Date/Time of Note Date/Time of Note DATE: 11/20/16 TIME: 13:19 Assessment/Plan VTE Prophylaxis VTE Prophylaxis Intervention: SCD's Lines/Catheters IV Catheter Type (from [facility]): Saline Lock Urinary Cath still in place: No Assessment/Plan Assessment/Plan - Abdominal Pain --CT Abd/Pelvis- 1. Status post recent laparoscopic hysterectomy.2. Fluid and fat infiltration in the hysterectomy bed. Some areas of irregular linear enhancement are seen adjacent to the fluid, suspicious for early abscess formation- a 3.3 x 4.7 cm incompletely encapsulated fluid collection between the urinary bladder and distal sigmoid colon.3. Mild postoperative pneumoperitoneum. - per surgery - Start antibiotics -Nonobstructing left renal calculi - urology consult- dr Amado -Status post hysterectomy with moderate pelvic stranding and mild free fluid. No drainable fluid collection is identified. There is mild postsurgical pneumoperitoneum. - Hx Endometrial hyperplasia - status post laparoscopic total hysterectomy and bilateral salpingo- oophorectomy, lymph node dissection and ureteral dissection. - per surgery - diet per surgery - IV morphine for pain control and IV Zofran for nausea and vomiting. - SCDs for DVT prophylaxis. Andrés Sweeney Exam/Review of Systems Vital Signs Vitals Vital Signs Date Time Temp Pulse Resp B/P Pulse Ox O2 Delivery O2 Flow Rate FiO2 11/20/16 07:46 97.6 80 18 118/74 98 11/17/16 03:15 Room Air 11/17/16 00:30 2 Intake and Output 11/19/16 11/19/16 11/20/16 15:00 23:00 07:00 Intake Total 500 ml Balance 500 ml Exam Constitutional: alert, oriented, well developed Respiratory: clear to auscultation Cardiovascular: nl pulses, regular rate and rhythm Gastrointestinal: soft, tender Musculoskeletal: nl extremities to inspection Extremities: normal pulses Neurological: nl mental status Results Result Diagram: 11/20/16 0548 11/20/16 0548 Results 24 hrs Laboratory Tests Test 11/20/16 05:48 White Blood Count 7.9 Red Blood Count 4.09 L Hemoglobin 12.3 Hematocrit 37.4 Mean Corpuscular Volume 91.4 Mean Corpuscular Hemoglobin 30.1 Mean Corpuscular Hemoglobin Concent 32.9 Red Cell Distribution Width 12.5 Platelet Count 362 Mean Platelet Volume 9.1 Neutrophils % 63.9 Lymphocytes % 23.5 Monocytes % 7.1 Eosinophils % 4.5 Basophils % 0.6 Nucleated Red Blood Cells % 0.0 Neutrophils # 5.0 Lymphocytes # 1.9 Monocytes # 0.6 Eosinophils # 0.4 Basophils # 0.1 Nucleated Red Blood Cells # 0.0 Sodium Level 135 Potassium Level 4.1 Chloride Level 99 Carbon Dioxide Level 31 Anion Gap 9 Blood Urea Nitrogen 10 Creatinine 0.59 Glucose Level 91 Calcium Level 9.0 Medications Medications Current Medications Morphine Sulfate (morphine) 3 mg Q4H PRN IV PAIN; Start 11/17/16 at 04:30 Ondansetron HCl (Zofran Inj) 4 mg Q6H PRN IV NAUSEA AND/OR VOMITING Last administered on 11/20/16 09:28; Admin Dose 4 MG; Start 11/17/16 at 04:30 Acetaminophen (Tylenol Tab) 650 mg Q6H PRN PO PAIN AND OR ELEVATED TEMP; Start 11/17/16 at 04:30 Trimethoprim/ Sulfamethoxazole (Bactrim (Ds)) 1 tab Q12 PO Last administered on 11/20/16 08:18; Admin Dose 1 TAB; Start 11/17/16 at 09:00 Acetaminophen/ Hydrocodone Bitart ([place] (5/325)) 1 tab Q4H PRN PO PAIN Last administered on 11/20/16 05:23; Admin Dose 1 TAB; Start 11/17/16 at 09:38 Al Hydrox/Mg Hydrox/Simethicone (Mag-Al Plus) 30 ml Q6H PRN PO GASTROINTESTINAL UPSET Last administered on 11/17/16 09:59; Admin Dose 30 ML; Start 11/17/16 at 09:38 Docusate Sodium (Colace) 100 mg DAILY PO Last administered on 11/20/16 08:18; Admin Dose 100 MG; Start 11/18/16 at 09:00 Pantoprazole Sodium (Protonix) 20 mg DAILY@06 PO Last administered on 05:23; Admin Dose 20 MG; Start 11/18/16 at 06:00 Bisacodyl (Dulcolax) 5 mg DAILY PRN PO CONSTIPATION; Start 11/19/16 at 15:30 YUDITH WHATLEY Nov 20, 2016 13:33
[2016-11-20 14:00] VITALS: BP 110/65; RESP 18
[2016-11-20] MEDS ORDERED: metroNIDAZOLE 500 MG/NS (PMX) 100 ML IVPB ONE (14:00)
[2016-11-20] MEDS: metroNIDAZOLE 500 MG/NS (PMX) 100 ML IVPB SCH ×2 (17:38→23:45)
[2016-11-20 20:17] VITALS: BP 111/73; RESP 18
[2016-11-20] MEDS: AZTREONAM 1 GM/NS (PMX) 50 ML IVPB SCH (21:08)
[2016-11-21 02:00] VITALS: BP 111/64; RESP 18
[2016-11-21] MEDS: HYDROCODONE/APAP (5/325) TAB PO PRN ×2 (03:34→09:03)
[2016-11-21] MEDS: metroNIDAZOLE 500 MG/NS (PMX) 100 ML IVPB SCH ×4 (05:48→23:52)
[2016-11-21] MEDS: PANTOPRAZOLE SODIUM 20 MG TABEC PO SCH (06:23)
[2016-11-21] MEDS: LEVOTHYROXINE 75 MCG TAB PO SCH (06:23)
[2016-11-21 07:12] LABS: BASOPHIL # 0.1 10^3/ul (0.0-0.1); BASOPHILS % 1.2 % (0.0-2.0); EOSINOPHILS # 0.3 10^3/ul (0.0-0.5); HEMATOCRIT 36.8 % (37.0-47.0); HEMOGLOBIN 12.3 g/dl (12.0-16.0); LYMPHOCYTES # 1.4 10^3/ul (0.8-2.9); LYMPHOCYTES % 21.3 % (15.0-51.0); MEAN CORPUSCULAR HEMOGLOBIN 30.5 pg (29.0-33.0); MEAN CORPUSCULAR HGB CONC 33.4 g/dl (32.0-37.0); MEAN CORPUSCULAR VOLUME 91.3 fl (82.0-101.0); MEAN PLATELET VOLUME 8.7 fl (7.4-10.4); MONOCYTE # 0.4 10^3/ul (0.3-0.9); MONOCYTES % 6.5 % (0.0-11.0); NEUTROPHIL # 4.5 10^3/ul (1.6-7.5); NEUTROPHILS % 66.7 % (39.0-77.0); PLATELET COUNT 409 10^3/UL (140-415); RED BLOOD COUNT 4.03 10^6/ul (4.20-5.40); RED CELL DISTRIBUTION WIDTH 12.2 % (11.5-14.5); WHITE BLOOD COUNT 6.7 10^3/ul (4.8-10.8)
[2016-11-21 07:34] LABS: CALCIUM 9.3 mg/dl (8.4-10.2); CREATININE 0.6 mg/dl (0.44-1.00); POTASSIUM 4.3 mmol/L (3.5-5.1)
[2016-11-21 07:35] VITALS: BP 118/66; RESP 16
[2016-11-21] MEDS: TRIMETHOPRIM/SULFAMETHOX (DS) TAB PO SCH ×2 (09:03→21:07)
[2016-11-21] MEDS: AZTREONAM 1 GM/NS (PMX) 50 ML IVPB SCH ×2 (09:03→21:07)
[2016-11-21] MEDS: DOCUSATE SODIUM 100 MG CAP PO SCH (09:04)
[2016-11-21] MEDS: ONDANSETRON 4 MG INJ IV PRN (10:12)
[2016-11-21] MEDS: ACETAMINOPHEN 325 MG TAB PO PRN (11:30)
--- NOTE | 2016-11-21 11:39 | PN ---
Date/Time of Note Date/Time of Note DATE: 11/21/16 TIME: 11:39 Assessment/Plan VTE Prophylaxis VTE Prophylaxis Intervention: other Lines/Catheters IV C[facility] Type [facility]from [facility] Saline Lock Urinary Cath still in place: No Assessment/Plan Chief Complaint/Hosp Course - Abdominal Pain --CT Abd/Pelvis- 1. Status post recent laparoscopic hysterectomy.2. Fluid and fat infiltration in the hysterectomy bed. Some areas of irregular linear enhancement are seen adjacent to the fluid, suspicious for early abscess formation- a 3.3 x 4.7 cm incompletely encapsulated fluid collection between the urinary bladder and distal sigmoid colon.3. Mild postoperative pneumoperitoneum. - per surgery - Start antibiotics -Nonobstructing left renal calculi - urology consult- dr Amado -Status post hysterectomy with moderate pelvic stranding and mild free fluid. No drainable fluid collection is identified. There is mild postsurgical pneumoperitoneum. - Hx Endometrial hyperplasia - status post laparoscopic total hysterectomy and bilateral salpingo- oophorectomy, lymph node dissection and ureteral dissection. - per surgery - diet per surgery - IV morphine for pain control and IV Zofran for nausea and vomiting. - SCDs for DVT prophylaxis. Problems: Subjective 24 Hr Interval Summary Free Text/Dictation Patient denies any complaints Exam/Review of Systems Vital Signs Vitals Vital Signs Date Time Temp Pulse Resp B/P Pulse Ox O2 Delivery O2 Flow Rate FiO2 11/21/16 07:35 98.3 69 16 118/66 99 Intake and Output 11/20/16 11/20/16 11/21/16 15:00 23:00 07:00 Intake Total 2110 ml 200 ml Balance 2110 ml 200 ml Exam Constitutional: well developed Head: atraumatic, normocephalic Neck: supple Respiratory: clear to auscultation Cardiovascular: regular rate and rhythm Gastrointestinal: non-tender, soft Extremities: normal pulses Results Result Diagram: 11/21/16 0601 11/21/16 0603 Results 24 hrs Laboratory Tests Test 11/21/16 06:01 11/21/16 06:03 White Blood Count 6.7 Red Blood Count 4.03 L Hemoglobin 12.3 Hematocrit 36.8 L Mean Corpuscular Volume 91.3 Mean Corpuscular Hemoglobin 30.5 Mean Corpuscular Hemoglobin Concent 33.4 Red Cell Distribution Width 12.2 Platelet Count 409 Mean Platelet Volume 8.7 Neutrophils % 66.7 Lymphocytes % 21.3 Monocytes % 6.5 Eosinophils % 4.0 Basophils % 1.2 Nucleated Red Blood Cells % 0.0 Neutrophils # 4.5 Lymphocytes # 1.4 Monocytes # 0.4 Eosinophils # 0.3 Basophils # 0.1 Nucleated Red Blood Cells # 0.0 Sodium Level 137 Potassium Level 4.3 Chloride Level 101 Carbon Dioxide Level 29 Anion Gap 11 Blood Urea Nitrogen 11 Creatinine 0.60 Glucose Level 96 Calcium Level 9.3 Medications Medications Current Medications Morphine Sulfate (morphine) 3 mg Q4H PRN IV PAIN; Start 11/17/16 at 04:30 Ondansetron HCl (Zofran Inj) 4 mg Q6H PRN IV NAUSEA AND/OR VOMITING Last administered on 11/21/16 10:12; Admin Dose 4 MG; Start 11/17/16 at 04:30 Acetaminophen (Tylenol Tab) 650 mg Q6H PRN PO PAIN AND OR ELEVATED TEMP Last administered on 11/21/16 11:30; Admin Dose 650 MG; Start 11/17/16 at 04:30 Trimethoprim/ Sulfamethoxazole (Bactrim (Ds)) 1 tab Q12 PO Last administered on 11/21/16 09:03; Admin Dose 1 TAB; Start 11/17/16 at 09:00 Acetaminophen/ Hydrocodone Bitart ([place] (5/325)) 1 tab Q4H PRN PO PAIN Last administered on 11/21/16 09:03; Admin Dose 1 TAB; Start 11/17/16 at 09:38 Al Hydrox/Mg Hydrox/Simethicone (Mag-Al Plus) 30 ml Q6H PRN PO GASTROINTESTINAL UPSET Last administered on 11/17/16 09:59; Admin Dose 30 ML; Start 11/17/16 at 09:38 Docusate Sodium (Colace) 100 mg DAILY PO Last administered on 11/21/16 09:04; Admin Dose 100 MG; Start 11/18/16 at 09:00 Pantoprazole Sodium (Protonix) 20 mg DAILY@06 PO Last administered on 06:23; Admin Dose 20 MG; Start 11/18/16 at 06:00 Bisacodyl 5 mg 5 mg DAILY PRN PO CONSTIPATION; Start 11/19/16 at 15:30 Metronidazole 100 ml @ 100 mls/hr Q6 IVPB Last administered on 11/21/16 05:48 ; Admin Dose 100 MLS/HR; Start 11/20/16 at 18:00 Aztreonam (Azactam 1gm/NS (Pmx)) 50 ml @ 100 mls/hr Q12 IVPB Last administered on 11/21/16 09:03; Admin Dose 100 MLS/HR; Start 11/20/16 at 21:00 MARIO ALBERTO DELGADO Nov 21, 2016 11:39
--- NOTE | 2016-11-21 14:05 | PN ---
Date/Time of Note Date/Time of Note DATE: 11/21/16 TIME: 13:55 Assessment/Plan VTE Prophylaxis VTE Prophylaxis Intervention: LMWH Lines/Catheters IV [facility] Saline Lock Urinary Cath still in place: No Assessment/Plan Chief Complaint/Hosp Course Pelvic and not head pain, s/p laparoscopy for endometrial cancer 8 days. Problems: Assessment/Plan A- 1- please note the pelvic collection is unlikely an abscess given that always afebrile and the highest her WBC ever was, was 11.1 Most likely accumulation of lymphatic fluid from LND done laparoscopically 2- Not certain why has headache only today; medication issue vs other P- Upright KUB and repeat labs Subjective 24 Hr Interval Summary Free Text/Dictation Pt indicates minimal abdominal discomfort at this time (surgery was 11/13/16 laparoscopic for endometrial Ca) Now complains of headache and nausea. + flatus. Exam/Review of Systems Vital Signs Vitals Vital Signs Date Time Temp Pulse Resp B/P Pulse Ox O2 Delivery O2 Flow Rate FiO2 11/21/16 07:35 98.3 69 16 118/66 99 Intake and Output 11/20/16 11/20/16 11/21/16 15:00 23:00 07:00 Intake Total 2110 ml 200 ml Balance 2110 ml 200 ml Exam Resp- clear and symmetric CVS- NSR Abd- minimally tender suprapubic, no rebound, not distended. Pelvis- Vaginal cuff entirely intact and NT. Slight fullness Rectal; as above; consistent with small collection in pelvis Ext- NT no edema Results Result Diagram: 11/21/16 0601 11/21/16 0603 Results 24 hrs Laboratory Tests Test 11/21/16 06:01 11/21/16 06:03 White Blood Count 6.7 Red Blood Count 4.03 L Hemoglobin 12.3 Hematocrit 36.8 L Mean Corpuscular Volume 91.3 Mean Corpuscular Hemoglobin 30.5 Mean Corpuscular Hemoglobin Concent 33.4 Red Cell Distribution Width 12.2 Platelet Count 409 Mean Platelet Volume 8.7 Neutrophils % 66.7 Lymphocytes % 21.3 Monocytes % 6.5 Eosinophils % 4.0 Basophils % 1.2 Nucleated Red Blood Cells % 0.0 Neutrophils # 4.5 Lymphocytes # 1.4 Monocytes # 0.4 Eosinophils # 0.3 Basophils # 0.1 Nucleated Red Blood Cells # 0.0 Sodium Level 137 Potassium Level 4.3 Chloride Level 101 Carbon Dioxide Level 29 Anion Gap 11 Blood Urea Nitrogen 11 Creatinine 0.60 Glucose Level 96 Calcium Level 9.3 Medications Medications Current Medications Morphine Sulfate (morphine) 3 mg Q4H PRN IV PAIN; Start 11/17/16 at 04:30 Ondansetron HCl (Zofran Inj) 4 mg Q6H PRN IV NAUSEA AND/OR VOMITING Last administered on 11/21/16 10:12; Admin Dose 4 MG; Start 11/17/16 at 04:30 Acetaminophen (Tylenol Tab) 650 mg Q6H PRN PO PAIN AND OR ELEVATED TEMP Last administered on 11/21/16 11:30; Admin Dose 650 MG; Start 11/17/16 at 04:30 Trimethoprim/ Sulfamethoxazole (Bactrim (Ds)) 1 tab Q12 PO Last administered on 11/21/16 09:03; Admin Dose 1 TAB; Start 11/17/16 at 09:00 Acetaminophen/ Hydrocodone Bitart ([place] (5/325)) 1 tab Q4H PRN PO PAIN Last administered on 11/21/16 09:03; Admin Dose 1 TAB; Start 11/17/16 at 09:38 Al Hydrox/Mg Hydrox/Simethicone (Mag-Al Plus) 30 ml Q6H PRN PO GASTROINTESTINAL UPSET Last administered on 11/17/16 09:59; Admin Dose 30 ML; Start 11/17/16 at 09:38 Docusate Sodium (Colace) 100 mg DAILY PO Last administered on 11/21/16 09:04; Admin Dose 100 MG; Start 11/18/16 at 09:00 Pantoprazole Sodium (Protonix) 20 mg DAILY@06 PO Last administered on 06:23; Admin Dose 20 MG; Start 11/18/16 at 06:00 Bisacodyl 5 mg 5 mg DAILY PRN PO CONSTIPATION; Start 11/19/16 at 15:30 Metronidazole 100 ml @ 100 mls/hr Q6 IVPB Last administered on 11/21/16 05:48 ; Admin Dose 100 MLS/HR; Start 11/20/16 at 18:00 Aztreonam (Azactam 1gm/NS (Pmx)) 50 ml @ 100 mls/hr Q12 IVPB Last administered on 11/21/16 09:03; Admin Dose 100 MLS/HR; Start 11/20/16 at 21:00 DEEPIKA CHILDS MD Nov 21, 2016 14:05
[2016-11-21 14:15] VITALS: BP 118/68; RESP 16
[2016-11-21 20:20] VITALS: BP 115/65; RESP 18
[2016-11-22 02:23] VITALS: BP 123/77; RESP 18
[2016-11-22] MEDS: HYDROCODONE/APAP (5/325) TAB PO PRN ×2 (05:30→22:43)
[2016-11-22] MEDS: PANTOPRAZOLE SODIUM 20 MG TABEC PO SCH (05:30)
[2016-11-22] MEDS: metroNIDAZOLE 500 MG/NS (PMX) 100 ML IVPB SCH ×4 (05:30→23:40)
[2016-11-22] MEDS: LEVOTHYROXINE 75 MCG TAB PO SCH (06:12)
[2016-11-22 06:14] LABS: BASOPHIL # 0.1 10^3/ul (0.0-0.1); BASOPHILS % 1.3 % (0.0-2.0); EOSINOPHILS # 0.3 10^3/ul (0.0-0.5); HEMATOCRIT 40.7 % (37.0-47.0); HEMOGLOBIN 13.3 g/dl (12.0-16.0); LYMPHOCYTES % 26.8 % (15.0-51.0); MEAN CORPUSCULAR HEMOGLOBIN 29.9 pg (29.0-33.0); MEAN CORPUSCULAR HGB CONC 32.7 g/dl (32.0-37.0); MEAN CORPUSCULAR VOLUME 91.5 fl (82.0-101.0); MEAN PLATELET VOLUME 8.5 fl (7.4-10.4); MONOCYTE # 0.5 10^3/ul (0.3-0.9); MONOCYTES % 6.6 % (0.0-11.0); NEUTROPHIL # 4.5 10^3/ul (1.6-7.5); NEUTROPHILS % 61.2 % (39.0-77.0); PLATELET COUNT 470 10^3/UL (140-415); RED BLOOD COUNT 4.45 10^6/ul (4.20-5.40); RED CELL DISTRIBUTION WIDTH 12.3 % (11.5-14.5); WHITE BLOOD COUNT 7.4 10^3/ul (4.8-10.8)
[2016-11-22 07:12] LABS: CALCIUM 9.5 mg/dl (8.4-10.2); CREATININE 0.67 mg/dl (0.44-1.00); POTASSIUM 4.3 mmol/L (3.5-5.1)
[2016-11-22 07:44] VITALS: BP 113/64; RESP 16
[2016-11-22] MEDS: DOCUSATE SODIUM 100 MG CAP PO SCH (08:13)
[2016-11-22] MEDS: TRIMETHOPRIM/SULFAMETHOX (DS) TAB PO SCH ×2 (08:13→20:45)
[2016-11-22] MEDS: AZTREONAM 1 GM/NS (PMX) 50 ML IVPB SCH ×2 (08:13→20:47)
[2016-11-22] MEDS: ACETAMINOPHEN 325 MG TAB PO PRN (11:10)
--- NOTE | 2016-11-22 12:00 | PN ---
Date/Time of Note Date/Time of Note DATE: 11/22/16 TIME: 12:00 Assessment/Plan VTE Prophylaxis VTE Prophylaxis Intervention: other Lines/Catheters [facility] Saline Lock Urinary Cath still in place: No Assessment/Plan Chief Complaint/Hosp Course - Abdominal Pain --CT Abd/Pelvis- 1. Status post recent laparoscopic hysterectomy.2. Fluid and fat infiltration in the hysterectomy bed. Some areas of irregular linear enhancement are seen adjacent to the fluid, suspicious for early abscess formation- a 3.3 x 4.7 cm incompletely encapsulated fluid collection between the urinary bladder and distal sigmoid colon.3. Mild postoperative pneumoperitoneum. - per surgery - Start antibiotics -Nonobstructing left renal calculi - urology consult- dr Amado -Status post hysterectomy with moderate pelvic stranding and mild free fluid. No drainable fluid collection is identified. There is mild postsurgical pneumoperitoneum. - Hx Endometrial hyperplasia - status post laparoscopic total hysterectomy and bilateral salpingo- oophorectomy, lymph node dissection and ureteral dissection. - per surgery - diet per surgery - IV morphine for pain control and IV Zofran for nausea and vomiting. - SCDs for DVT prophylaxis. Problems: Subjective 24 Hr Interval Summary Free Text/Dictation Patient complain of headache from antibiotics otherwise feeling slight abdominal pain Exam/Review of Systems Vital Signs Vitals Vital Signs Date Time Temp Pulse Resp B/P Pulse Ox O2 Delivery O2 Flow Rate FiO2 11/22/16 07:44 98.4 82 16 113/64 95 Intake and Output 11/21/16 11/21/16 11/22/16 15:00 23:00 07:00 Intake Total 1250 ml 910 ml 900 ml Balance 1250 ml 910 ml 900 ml Exam Constitutional: well developed Head: atraumatic, normocephalic Neck: supple Respiratory: clear to auscultation Cardiovascular: regular rate and rhythm Gastrointestinal: non-tender, soft Extremities: normal pulses Results Result Diagram: 11/22/16 0545 11/22/16 0545 Results 24 hrs Laboratory Tests Test 11/22/16 05:45 White Blood Count 7.4 Red Blood Count 4.45 Hemoglobin 13.3 Hematocrit 40.7 Mean Corpuscular Volume 91.5 Mean Corpuscular Hemoglobin 29.9 Mean Corpuscular Hemoglobin Concent 32.7 Red Cell Distribution Width 12.3 Platelet Count 470 H Mean Platelet Volume 8.5 Neutrophils % 61.2 Lymphocytes % 26.8 Monocytes % 6.6 Eosinophils % 4.0 Basophils % 1.3 Nucleated Red Blood Cells % 0.0 Neutrophils # 4.5 Lymphocytes # 2.0 Monocytes # 0.5 Eosinophils # 0.3 Basophils # 0.1 Nucleated Red Blood Cells # 0.0 Sodium Level 141 Potassium Level 4.3 Chloride Level 102 Carbon Dioxide Level 29 Anion Gap 14 Blood Urea Nitrogen 11 Creatinine 0.67 Glucose Level 97 Calcium Level 9.5 Medications Medications Current Medications Morphine Sulfate (morphine) 3 mg Q4H PRN IV PAIN; Start 11/17/16 at 04:30 Ondansetron HCl (Zofran Inj) 4 mg Q6H PRN IV NAUSEA AND/OR VOMITING Last administered on 11/21/16 10:12; Admin Dose 4 MG; Start 11/17/16 at 04:30 Acetaminophen (Tylenol Tab) 650 mg Q6H PRN PO PAIN AND OR ELEVATED TEMP Last administered on 11/22/16 11:10; Admin Dose 650 MG; Start 11/17/16 at 04:30 Trimethoprim/ Sulfamethoxazole (Bactrim (Ds)) 1 tab Q12 PO Last administered on 11/22/16 08:13; Admin Dose 1 TAB; Start 11/17/16 at 09:00 Acetaminophen/ Hydrocodone Bitart ([place] (5/325)) 1 tab Q4H PRN PO PAIN Last administered on 11/22/16 05:30; Admin Dose 1 TAB; Start 11/17/16 at 09:38 Al Hydrox/Mg Hydrox/Simethicone (Mag-Al Plus) 30 ml Q6H PRN PO GASTROINTESTINAL UPSET Last administered on 11/17/16 09:59; Admin Dose 30 ML; Start 11/17/16 at 09:38 Docusate Sodium (Colace) 100 mg DAILY PO Last administered on 11/22/16 08:13; Admin Dose 100 MG; Start 11/18/16 at 09:00 Pantoprazole Sodium (Protonix) 20 mg DAILY@06 PO Last administered on 05:30; Admin Dose 20 MG; Start 11/18/16 at 06:00 Bisacodyl 5 mg 5 mg DAILY PRN PO CONSTIPATION Last administered on 11/21/16 21 :10; Admin Dose 5 MG; Start 11/19/16 at 15:30 Metronidazole 100 ml @ 100 mls/hr Q6 IVPB Last administered on 11/22/16 11:18 ; Admin Dose 100 MLS/HR; Start 11/20/16 at 18:00 Aztreonam (Azactam 1gm/NS (Pmx)) 50 ml @ 100 mls/hr Q12 IVPB Last administered on 11/22/16 08:13; Admin Dose 100 MLS/HR; Start 11/20/16 at 21:00 MARIO ALBERTO DELGADO Nov 22, 2016 12:00
[2016-11-22 13:45] VITALS: BP 114/68; RESP 16
[2016-11-22] MEDS: ONDANSETRON 4 MG INJ IV PRN (13:45)
--- NOTE | 2016-11-22 15:18 | RADRPT ---
PROCEDURE: XR Abdomen. CLINICAL INDICATION: Abdomen pain. TECHNIQUE: Two views. AP supine and AP erect. COMPARISON: None. FINDINGS: There is no free air. There is contrast throughout the colon from the prior CT scan. There is no evidence of obstruction. Surgical clips are noted in the pelvis. The osseus structures are unremarkable. IMPRESSION: 1. Contrast throughout the colon from prior CT scan. No evidence of obstruction. 2. Prior pelvic surgery. 3. Otherwise unremarkable study. RPTAT: QQ .Tristin Nava MD, MD Date Time Electronically viewed and signed by .Tristin Nava MD, MD on 11/22/2016 15:18 .R/
[2016-11-22 19:53] VITALS: BP 134/75; RESP 20
[2016-11-23 01:58] VITALS: BP 108/75; RESP 20
[2016-11-23] MEDS: PANTOPRAZOLE SODIUM 20 MG TABEC PO SCH (06:06)
[2016-11-23] MEDS: metroNIDAZOLE 500 MG/NS (PMX) 100 ML IVPB SCH ×4 (06:06→23:40)
[2016-11-23] MEDS: LEVOTHYROXINE 75 MCG TAB PO SCH (06:06)
[2016-11-23 07:38] VITALS: BP 128/83; RESP 20
[2016-11-23] MEDS: AZTREONAM 1 GM/NS (PMX) 50 ML IVPB SCH ×2 (08:57→20:51)
[2016-11-23] MEDS: DOCUSATE SODIUM 100 MG CAP PO SCH (08:57)
[2016-11-23] MEDS: TRIMETHOPRIM/SULFAMETHOX (DS) TAB PO SCH (08:57)
[2016-11-23 13:59] VITALS: BP 125/75; RESP 18
[2016-11-23] MEDS: ACETAMINOPHEN 325 MG TAB PO PRN (17:23)
--- NOTE | 2016-11-23 19:22 | PN ---
Date/Time of Note Date/Time of Note DATE: 11/23/16 TIME: 19:11 Assessment/Plan VTE Prophylaxis VTE Prophylaxis Intervention: SCD's Lines/Catheters IV Catheter Type (from [facility]): Saline Lock Urinary Cath still in place: No Assessment/Plan Chief Complaint/Hosp Course Patient denies any fever, states significant improvement in abdominal pain. Assessment/Plan - Abdominal Pain, resolving - Status post recent laparoscopic hysterectomy. Dr. Solomon is following in surgical consultation - Pelvic fluid collection most likely lymphatic fluid status post lymph node dissection, rule out abscess - Nonobstructing left renal calculi, just post evaluation by Dr. Burkett, urology Further recommendations based on clinical course. Plan of care discussed with Dr. Sweeney. Problems: Exam/Review of Systems Vital Signs Vitals Vital Signs Date Time Temp Pulse Resp B/P Pulse Ox O2 Delivery O2 Flow Rate FiO2 11/23/16 13:59 98.4 78 18 125/75 96 Intake and Output 11/22/16 11/22/16 11/23/16 15:00 23:00 07:00 Intake Total 150 ml 1110 ml 560 ml Balance 150 ml 1110 ml 560 ml Exam Constitutional: alert Head: normocephalic Neck: supple Respiratory: clear to auscultation Cardiovascular: nl pulses Gastrointestinal: non-tender, soft Musculoskeletal: nl extremities to inspection Results Result Diagram: 11/22/16 0545 11/22/16 0545 Medications Medications Current Medications Morphine Sulfate (morphine) 3 mg Q4H PRN IV PAIN; Start 11/17/16 at 04:30 Ondansetron HCl (Zofran Inj) 4 mg Q6H PRN IV NAUSEA AND/OR VOMITING Last administered on 11/22/16 13:45; Admin Dose 4 MG; Start 11/17/16 at 04:30 Acetaminophen (Tylenol Tab) 650 mg Q6H PRN PO PAIN AND OR ELEVATED TEMP Last administered on 11/23/16 17:23; Admin Dose 650 MG; Start 11/17/16 at 04:30 Acetaminophen/ Hydrocodone Bitart ([place] (5/325)) 1 tab Q4H PRN PO PAIN Last administered on 11/22/16 22:43; Admin Dose 1 TAB; Start 11/17/16 at 09:38 Al Hydrox/Mg Hydrox/Simethicone (Mag-Al Plus) 30 ml Q6H PRN PO GASTROINTESTINAL UPSET Last administered on 11/17/16 09:59; Admin Dose 30 ML; Start 11/17/16 at 09:38 Docusate Sodium (Colace) 100 mg DAILY PO Last administered on 11/23/16 08:57; Admin Dose 100 MG; Start 11/18/16 at 09:00 Pantoprazole Sodium (Protonix) 20 mg DAILY@06 PO Last administered on 06:06; Admin Dose 20 MG; Start 11/18/16 at 06:00 Bisacodyl 5 mg 5 mg DAILY PRN PO CONSTIPATION Last administered on 11/21/16 21 :10; Admin Dose 5 MG; Start 11/19/16 at 15:30 Metronidazole 100 ml @ 100 mls/hr Q6 IVPB Last administered on 11/23/16 17:20 ; Admin Dose 100 MLS/HR; Start 11/20/16 at 18:00 Aztreonam (Azactam 1gm/NS (Pmx)) 50 ml @ 100 mls/hr Q12 IVPB Last administered on 11/23/16 08:57; Admin Dose 100 MLS/HR; Start 11/20/16 at 21:00 LUIS EDUARDO MONTANO Nov 23, 2016 19:22
--- NOTE | 2016-11-23 20:54 | PN ---
Date/Time of Note Date/Time of Note DATE: 11/23/16 TIME: 20:52 Assessment/Plan VTE Prophylaxis VTE Prophylaxis Intervention: SCD's Lines/Catheters IV Catheter Type (from [facility]): Saline Lock Urinary Cath still in place: No Assessment/Plan Chief Complaint/Hosp Course Pelvic and not head pain, s/p laparoscopy for endometrial cancer 8 days. Problems: Subjective 24 Hr Interval Summary Free Text/Dictation Feels better, pain resolved. Exam/Review of Systems Vital Signs Vitals Vital Signs Date Time Temp Pulse Resp B/P Pulse Ox O2 Delivery O2 Flow Rate FiO2 11/23/16 13:59 98.4 78 18 125/75 96 Intake and Output 11/22/16 11/22/16 11/23/16 15:00 23:00 07:00 Intake Total 150 ml 1110 ml 560 ml Balance 150 ml 1110 ml 560 ml Exam Resp- clear CVS- NSR Abd- soft NT Ext- NT no edema Results Result Diagram: 11/22/1645 11/22/1645 Medications Medications Current Medications Morphine Sulfate (morphine) 3 mg Q4H PRN IV PAIN; Start 11/17/16 at 04:30 Ondansetron HCl (Zofran Inj) 4 mg Q6H PRN IV NAUSEA AND/OR VOMITING Last administered on 11/22/16 13:45; Admin Dose 4 MG; Start 11/17/16 at 04:30 Acetaminophen (Tylenol Tab) 650 mg Q6H PRN PO PAIN AND OR ELEVATED TEMP Last administered on 11/23/16 17:23; Admin Dose 650 MG; Start 11/17/16 at 04:30 Acetaminophen/ Hydrocodone Bitart ([place] (5/325)) 1 tab Q4H PRN PO PAIN Last administered on 11/22/16 22:43; Admin Dose 1 TAB; Start 11/17/16 at 09:38 Al Hydrox/Mg Hydrox/Simethicone (Mag-Al Plus) 30 ml Q6H PRN PO GASTROINTESTINAL UPSET Last administered on 11/17/16 09:59; Admin Dose 30 ML; Start 11/17/16 at 09:38 Docusate Sodium (Colace) 100 mg DAILY PO Last administered on 11/23/16 08:57; Admin Dose 100 MG; Start 11/18/16 at 09:00 Pantoprazole Sodium (Protonix) 20 mg DAILY@06 PO Last administered on 06:06; Admin Dose 20 MG; Start 11/18/16 at 06:00 Bisacodyl 5 mg 5 mg DAILY PRN PO CONSTIPATION Last administered on 11/21/16 21 :10; Admin Dose 5 MG; Start 11/19/16 at 15:30 Metronidazole 100 ml @ 100 mls/hr Q6 IVPB Last administered on 11/23/16 17:20 ; Admin Dose 100 MLS/HR; Start 11/20/16 at 18:00 Aztreonam (Azactam 1gm/NS (Pmx)) 50 ml @ 100 mls/hr Q12 IVPB Last administered on 11/23/16 20:51; Admin Dose 100 MLS/HR; Start 11/20/16 at 21:00 DEEIPKA CHILDS MD Nov 23, 2016 20:54
[2016-11-24 03:02] VITALS: BP 112/68; RESP 18
[2016-11-24] MEDS: PANTOPRAZOLE SODIUM 20 MG TABEC PO SCH (06:10)
[2016-11-24] MEDS: LEVOTHYROXINE 75 MCG TAB PO SCH (06:10)
[2016-11-24] MEDS: metroNIDAZOLE 500 MG/NS (PMX) 100 ML IVPB SCH ×2 (06:10→11:57)
[2016-11-24 06:27] LABS: BASOPHIL # 0.1 10^3/ul (0.0-0.1); BASOPHILS % 1.6 % (0.0-2.0); EOSINOPHILS # 0.5 10^3/ul (0.0-0.5); EOSINOPHILS % 7.2 % (0.0-7.0); HEMATOCRIT 35.6 % (37.0-47.0); HEMOGLOBIN 11.6 g/dl (12.0-16.0); LYMPHOCYTES # 1.9 10^3/ul (0.8-2.9); LYMPHOCYTES % 29.6 % (15.0-51.0); MEAN CORPUSCULAR HEMOGLOBIN 29.6 pg (29.0-33.0); MEAN CORPUSCULAR HGB CONC 32.6 g/dl (32.0-37.0); MEAN CORPUSCULAR VOLUME 90.8 fl (82.0-101.0); MEAN PLATELET VOLUME 8.8 fl (7.4-10.4); MONOCYTE # 0.5 10^3/ul (0.3-0.9); MONOCYTES % 7.2 % (0.0-11.0); NEUTROPHIL # 3.4 10^3/ul (1.6-7.5); NEUTROPHILS % 54.1 % (39.0-77.0); PLATELET COUNT 445 10^3/UL (140-415); RED BLOOD COUNT 3.92 10^6/ul (4.20-5.40); RED CELL DISTRIBUTION WIDTH 12.5 % (11.5-14.5); WHITE BLOOD COUNT 6.3 10^3/ul (4.8-10.8)
[2016-11-24 07:02] LABS: CALCIUM 8.7 mg/dl (8.4-10.2); CREATININE 0.54 mg/dl (0.44-1.00); POTASSIUM 4.2 mmol/L (3.5-5.1)
[2016-11-24 07:46] VITALS: BP 115/66; RESP 18
[2016-11-24] MEDS: DOCUSATE SODIUM 100 MG CAP PO SCH (08:14)
[2016-11-24] MEDS: AZTREONAM 1 GM/NS (PMX) 50 ML IVPB SCH (08:15)
[2016-11-24 14:18] VITALS: BP 118/75; RESP 18
--- NOTE | 2016-11-24 15:22 | DS ---
Date/Time of Note Date/Time of Note DATE: 11/24/16 TIME: 15:20 Discharge Summary Admission/Discharge Info Admit Date/Time Nov 19, 2016 at 15:23 Discharge Date/Time Patient Condition: Stable Hx of Present Illness HPI This is a very pleasant 46-year-old female who comes in with complaints of abdominal pain. She status post hysterectomy. No nausea no vomiting no chills. No other current complaints. ROS All systems reviewed and are negative except as per history of present illness. Medications Home Meds Active Scripts Docusate Sodium* (Colace*) 100 Mg Capsule, 100 MG PO DAILY, #20 CAP Prov:SUSANNEEORAYUDITH 11/15/16 Pantoprazole* (Protonix*) 20 Mg Tablet.dr, 20 MG PO DAILY, #20 TAB Prov:SUSANNEEYUDITH GONZALES 11/15/16 Hydrocodone Bit-Acetaminophen (Hydrocodone Bit-APAP) 5-325MG Tablet, 1 TAB PO Q6H Y for pain, #10 TAB Prov:YUDITH WHATLEY 11/15/16 Reported Medications Levothyroxine Sodium* (Levoxyl*) 75 Mcg Tablet, 75 MCG PO BEFORE BREAKFAST, #30 TAB 09/01/16 Discontinued Reported Medications Metronidazole* (Flagyl*) 500 Mg Tablet, 500 MG PO BID, TAB 11/13/16 Allergies Allergies: Coded Allergies: Penicillins (Verified Allergy, Unknown, SOB, RASH, 09/01/16) ciprofloxacin (Verified Allergy, Unknown, SOB, RASH, 09/01/16) Hospital Course - Abdominal Pain, resolving - Status post recent laparoscopic hysterectomy. Dr. Solomon is following in surgical consultation - Pelvic fluid collection most likely lymphatic fluid status post lymph node dissection, rule out abscess - Nonobstructing left renal calculi, just post evaluation by Dr. Burkett, urology Home Meds Active Scripts Docusate Sodium* (Colace*) 100 Mg Capsule, 100 MG PO DAILY, #20 CAP Prov:SUSANNEEYUDITH GONZALES 11/15/16 Pantoprazole* (Protonix*) 20 Mg Tablet.dr, 20 MG PO DAILY, #20 TAB Prov:SUSANNEEYUDITH GONZALES 11/15/16 Hydrocodone Bit-Acetaminophen (Hydrocodone Bit-APAP) 5-325MG Tablet, 1 TAB PO Q6H Y for pain, #10 TAB Prov:SADEORAYUDITH 11/15/16 Reported Medications Levothyroxine Sodium* (Levoxyl*) 75 Mcg Tablet, 75 MCG PO BEFORE BREAKFAST, #30 TAB 09/01/16 Follow-up Plan f/up with Dr Duran in 2 weeks. Primary Care Provider Zaina Woorduff Time spent on discharge: < 30 minutes Pending Labs Laboratory Tests Test 11/24/16 05:39 White Blood Count 6.310^3/ul (4.8-10.8) Red Blood Count 3.9210^6/ul (4.20-5.40) Hemoglobin 11.6g/dl (12.0-16.0) Hematocrit 35.6% (37.0-47.0) Mean Corpuscular Volume 90.8fl (82.0-101.0) Mean Corpuscular Hemoglobin 29.6pg (29.0-33.0) Mean Corpuscular Hemoglobin Concent 32.6g/dl (32.0-37.0) Red Cell Distribution Width 12.5% (11.5-14.5) Platelet Count 39461^3/UL (140-415) Mean Platelet Volume 8.8fl (7.4-10.4) Neutrophils % 54.1% (39.0-77.0) Lymphocytes % 29.6% (15.0-51.0) Monocytes % 7.2% (0.0-11.0) Eosinophils % 7.2% (0.0-7.0) Basophils % 1.6% (0.0-2.0) Nucleated Red Blood Cells % 0.0/100WBC (0.0-0.0) Neutrophils # 3.410^3/ul (1.6-7.5) Lymphocytes # 1.910^3/ul (0.8-2.9) Monocytes # 0.510^3/ul (0.3-0.9) Eosinophils # 0.510^3/ul (0.0-0.5) Basophils # 0.110^3/ul (0.0-0.1) Nucleated Red Blood Cells # 0.010^3/ul (0.0-0.0) Sodium Level 140mmol/L (135-144) Potassium Level 4.2mmol/L (3.5-5.1) Chloride Level 106mmol/L (97-110) Carbon Dioxide Level 27mmol/L (21-31) Anion Gap 11 (8-16) Blood Urea Nitrogen 13mg/dl (7-20) Creatinine 0.54mg/dl (0.44-1.00) Glucose Level 91mg/dl (70-220) Calcium Level 8.7mg/dl (8.4-10.2) LUIS EDUARDO MONTANO Nov 24, 2016 15:22
== END 2016-11-24 16:00 | disposition home or self-care (01) | DRG 391 ==
LOC: E/R 23:51 → MS2 11-17 02:42 → OBSVTOIN 11-19 15:23 → MS2 11-22 13:39
PROVIDERS: ADMIT Internal Medicine; ATTEND Internal Medicine
DX: R10.9 Unspecified abdominal pain (principal); K65.1 Peritoneal abscess; N20.0 Calculus of kidney; C54.1 Malignant neoplasm of endometrium; Z90.722 Acquired absence of ovaries, bilateral; Z90.710 Acquired absence of both cervix and uterus; Z90.79 Acquired absence of other genital organ(s)
CPT/HCPCS: 36415; 71010; 74000; 74010; 74176; 74177; 80048; 80053; 81003; 83690; 83735; 83880; 84100; 84484; 85025; 85610; 85730; 87086; 93005; 96374; 96375; G0378; J1170; J2405; J7040; Q9967

== ENCOUNTER 2018-08-16 23:10 | Emergency (ER) | payer BC ==
[~2018-08-16] VITALS: Ht 162.6 cm; Wt 72.0 kg
[~2018-08-16 23:10] MED LIST changes: -HYDR-3498 PO; +HYDR-3601 PO
[2018-08-16 23:15] VITALS: BP 150/97; PULSE 87; RESP 18; Ht 162.6 cm; Wt 72.0 kg
[2018-08-17] MEDS ORDERED: IBUP-1542 PO (01:08)
[2018-08-17] MEDS ORDERED: TRAM50TA2 PO (01:08)
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
== END 2018-08-17 02:15 | disposition home or self-care (01) ==
LOC: FTE 23:10
DX: S09.90XA Unspecified injury of head, initial encounter (principal); E03.9 Hypothyroidism, unspecified; W22.8XXA Striking against or struck by other objects, initial encounter; Y92.9 Unspecified place or not applicable
CPT/HCPCS: 99283